=== PATIENT | male | born 1940 | race Caucasian/White ===

== ENCOUNTER → 2017-06-18 | Outpatient (CLI) | payer MEDICARE ==
[2017-06-18 09:06] LABS: CH 33.9; CHCM 33.8; HCT 49.7 % (39.0-53.0); HDW 2.57; HGB 16.9 gm/dL (13.0-17.5); MCH 34.2 pg (25.0-35.0); MCV 100.5 fL (80.0-100.0); Mean Platelet Volume 6.8; RBC 4.94 m/uL (4.30-5.90); RDW 12.4 % (11.5-15.5); WBC 4.1 k/uL (3.8-10.6)
[2017-06-18 09:22] LABS: ALT 35 U/L (21-72); AST 28 U/L (17-59); Anion Gap 11 mmol/L; Blood Urea Nitrogen 35 mg/dL (9-20); Calcium 9.7 mg/dL (8.4-10.2); Carbon Dioxide 25 mmol/L (22-30); Chloride 106 mmol/L (98-107); Cholesterol 110 mg/dL (<200); Glucose 108 mg/dL (74-99); HDL Cholesterol 52 mg/dL (40-60); Non-African American GFR(MDRD) 54 (>60 ml/min/1.73 sqM); Phosphorous 3.7 mg/dL (2.5-4.5); Sodium 142 mmol/L (137-145)
[2017-06-18 09:42] LABS: Appearance,Urine Clear (Clear); Bilirubin,Urine Negative (Negative); Glucose,Urine (UA) 4+ (Negative); Ketones,Urine Negative (Negative); Leukocyte Esterase,Urine Negative (Negative); Nitrite,Urine Negative (Negative); Protein,Urine Negative (Negative); Specific Gravity,Urine 1.019 (1.001-1.035); UA Billing (MACRO vs. MICRO) CHEM; Urobilinogen,Urine <2.0 mg/dL (<2.0)
[2017-06-18 12:15] LABS: Hemoglobin A1C 6.7 % (4.2-6.1)
== END | disposition home or self-care (01) ==
LOC: LABWHC1 08:37
PROVIDERS: ATTEND Internal Medicine
DX: E11.22 Type 2 diabetes mellitus with diabetic chronic kidney disease (principal); E78.2 Mixed hyperlipidemia; I10 Essential (primary) hypertension
CPT/HCPCS: 36415; 80061; 80069; 81003; 83036; 84450; 84460; 85027

== ENCOUNTER → 2018-07-27 | Outpatient (CLI) | payer MEDICARE ==
[2018-07-27 11:27] LABS: Albumin 4.5 g/dL (3.5-5.0); Calcium 9.9 mg/dL (8.4-10.2); Magnesium 1.8 mg/dL (1.6-2.3); Phosphorus 3.1 mg/dL (2.5-4.5); Total Bilirubin 0.8 mg/dL (0.2-1.3); Total Protein 7.1 g/dL (6.3-8.2)
[2018-07-27 11:48] LABS: PSA Annual Screen 0.44 ng/mL (0.00-4.00)
== END | disposition home or self-care (01) ==
LOC: LABWHC1 09:24
PROVIDERS: ATTEND Family Medicine
DX: E78.5 Hyperlipidemia, unspecified (principal); N18.2 Chronic kidney disease, stage 2 (mild); E11.22 Type 2 diabetes mellitus with diabetic chronic kidney disease; Z12.5 Encounter for screening for malignant neoplasm of prostate; Z80.42 Family history of malignant neoplasm of prostate
CPT/HCPCS: 80061; 80053; 83735; 84100; 82043; 82570; 83036; 36415; G0103

== ENCOUNTER → 2019-05-24 | Outpatient (CLI) | payer MEDICARE ==
[2019-05-24 16:28] LABS: African American GFR (CKD) 55.8 (60.0-200.0); Anion Gap 7.2 mmol/L (4.00-12.00); BUN/Creat Ratio 20.71 Ratio (12.00-20.00); Calcium 9.2 mg/dL (8.7-10.3); Carbon Dioxide 22.8 mmol/L (21.6-31.8); LDL Cholesterol,Calculated 30.8 mg/dL (0.0-131.0); Potassium 5.6 mmol/L (3.5-5.5); VLDL Calculation 20.2 mg/dL (5.00-40.00)
[2019-05-24 17:53] LABS: Hemoglobin A1C 7.7 % (4.0-6.0)
== END | disposition home or self-care (01) ==
LOC: LABWHC1 08:53
PROVIDERS: ATTEND Nurse Practitioner Adult Health
DX: I10 Essential (primary) hypertension (principal); E78.5 Hyperlipidemia, unspecified; E11.69 Type 2 diabetes mellitus with other specified complication; E03.9 Hypothyroidism, unspecified
CPT/HCPCS: 36415; 80048; 80061; 83036; 84443

== ENCOUNTER → 2019-06-18 | Outpatient (CLI) | payer MEDICARE ==
--- NOTE | 2019-06-18 15:28 | XR ---
EXAMINATION TYPE: XR lumbar spine 2 or 3V DATE OF EXAM: 06/18/2019 COMPARISON: None HISTORY: Back pain and [age] TECHNIQUE: 3 view lumbar spine FINDINGS: There are 5 lumbar-type vertebral bodies. The pedicles are intact. There is loss of disc he ight at L2-3, L3-4, L4-5, L5-S1. Vacuum disc phenomenon is present L2-3 L3-4 and L5-S1. Posterior end plate spurring is present throughout the lumbar spine. Spondylosis is present. IMPRESSION: 1. Advanced degenerative disc changes. 2. Posterior endplate spurring. Consider MRI for additional evaluation. 3. No acute posttraumatic changes identified.
--- NOTE | 2019-06-18 15:30 | XR ---
EXAMINATION TYPE: XR thoracic spine complete DATE OF EXAM: 06/18/2019 COMPARISON: None HISTORY: M [age], trauma, fall TECHNIQUE: 3 views thoracic spine FINDINGS: 12 thoracic type vertebral bodies. There is exaggeration of the kyphosis in the upper thora cic spine. Spondylosis is present. Degenerative disc changes within the mid thoracic spine. Vertebral body heights appear preserved. Scoliosis is present. IMPRESSION: 1. Degenerative changes discussed above. 2. No acute posttraumatic change is evident.
== END | disposition home or self-care (01) ==
LOC: RADXRMAIN 14:55
PROVIDERS: ATTEND Internal Medicine
DX: M51.36 Other intervertebral disc degeneration, lumbar region (principal); M47.814 Spondylosis without myelopathy or radiculopathy, thoracic region
CPT/HCPCS: 72072; 72100

== ENCOUNTER 2019-07-02 13:06 | Inpatient (IN) | payer MEDICARE ==
[2019-07-02 14:03] LABS: Basophils % (A) 1 %; Eosinophils # (A) 0.2 k/uL (0-0.7); Eosinophils % (A) 4 %; HCT 47.6 % (39.0-53.0); HGB 15.6 gm/dL (13.0-17.5); Lymphocytes % (A) 16 %; MCH 33.2 pg (25.0-35.0); MCHC 32.8 g/dL (31.0-37.0); Macrocytosis Slight; Mean Platelet Volume 7.2; Monocytes # (A) 0.5 k/uL (0-1.0); Monocytes % (A) 8 %; Neutrophils # (A) 4.1 k/uL (1.3-7.7); Neutrophils % (A) 69 %; Platelet Count 185 k/uL (150-450); RBC 4.71 m/uL (4.30-5.90); RDW 13.9 % (11.5-15.5); WBC 5.9 k/uL (3.8-10.6)
[2019-07-02 14:15] LABS: Albumin 4.1 g/dL (3.5-5.0); Potassium 5.3 mmol/L (3.5-5.1); Total Bilirubin 0.6 mg/dL (0.2-1.3); Total Protein 6.8 g/dL (6.3-8.2)
[2019-07-02 14:16] LABS: Partial Thromboplastin Time 26.3 sec (22.0-30.0); Prothrombin Time 10.4 sec (9.0-12.0)
[2019-07-02] MEDS ORDERED: ASPIRIN 81 MG PO STA (14:57)
[2019-07-02] MEDS ORDERED: METOPROLOL TARTRATE 5 MG/5 ML VIAL IVP STA (15:02)
--- NOTE | 2019-07-02 15:09 | ED ---
General Adult HPI - General Chief complaint: Dizziness Stated complaint: SOB, dizziness Time Seen by Provider: 07/02/19 14:45 Source: patient Mode of arrival: ambulatory Limitations: no limitations - History of Present Illness Initial comments: Patient presents to the ED complaining of having dyspnea and dizziness intermittently over the past 3 weeks. Patient reports having dyspnea with just minimal activity. Patient denies being dyspneic currently. Patient reports that his dizziness is exacerbated with changes in position. Patient denies feeling dizzy currently. Patient states that his heart rate has been elevated recently, and he states that his primary care provider recently increased his metoprolol dose. Patient denies having any pain, fevers or chills, headache, focal neuro deficit, chest pain, neck/arm/jaw/back pain, cough or cold symptoms, palpitations, syncope, nausea/vomiting/diaphoresis, abdominal pain, bloody stools, melanotic stools, diarrhea, urinary symptoms, decreased urine output, leg/calf swelling or tenderness, or any other symptoms or complaints. Treatments Prior to Arrival: none - Related Data Allergies Allergy/AdvReac Type Severity Reaction Status Date / Time No Known Allergies Allergy Verified 07/02/19 13:17 Review of Systems ROS Statement: Those systems with pertinent positive or pertinent negative responses have been documented in the HPI. ROS Other: All systems not noted in ROS Statement are negative. Past Medical History Past Medical History: Diabetes Mellitus, Hyperlipidemia, Hypertension, Myocardial Infarction (DC), Osteoarthritis (OA) History of Any Multi-Drug Resistant Organisms: None Reported Past Surgical History: Coronary Bypass/CABG, Heart Catheterization With Stent Past Psychological History: Depression Smoking Status: Former smoker Past Alcohol Use History: None Reported Past Drug Use History: None Reported General Exam Limitations: no limitations General appearance: alert, in no apparent distress Head exam: Present: atraumatic, normocephalic Eye exam: Present: normal appearance, PERRL, EOMI ENT exam: Present: mucous membranes dry Respiratory exam: Present: normal lung sounds bilaterally. Absent: respiratory distress, wheezes, rales, rhonchi Cardiovascular Exam: Present: normal rhythm, tachycardia, normal heart sounds, other (Normal radial pulses bilaterally) GI/Abdominal exam: Present: soft. Absent: distended, tenderness Extremities exam: Present: normal inspection. Absent: tenderness, pedal edema, calf tenderness Neurological exam: Present: alert, oriented X3, CN II-XII intact, other (normal rojxzk-uw-hden exam bilaterally). Absent: motor sensory deficit Psychiatric exam: Present: normal affect, normal mood Skin exam: Present: warm, dry, intact Course Vital Signs 07/02/19 07/02/19 07/02/19 13:09 14:30 15:00 Temperature 98.0 F Pulse Rate 121 H 124 H 123 H Respiratory 18 22 20 Rate Blood Pressure 121/87 115/94 112/90 O2 Sat by Pulse 95 98 98 Oximetry 07/02/19 07/02/19 15:30 16:00 Temperature Pulse Rate 120 H 104 H Respiratory 18 18 Rate Blood Pressure 115/86 117/90 O2 Sat by Pulse 99 97 Oximetry - Reevaluation(s) Reevaluation #1: 07/02/19 16:05 Patient continues to be resting and breathing comfortably. Patient continues to deny feeling dyspneic or dizzy while in the ED. Patient's heart rate is now in the low 100s, and he remains in sinus tachycardia on the patient monitor. Patient is aware of his test results thus far, and he agrees with hospital admission at this time for further evaluation of his symptoms. Reevaluation #2: 07/02/19 16:19 Patient's case, H&P, elevated troponin and EKG findings were discussed with j2ee java developer Dr. Rome who agrees to see the patient in consultation. Reevaluation #3: 07/02/19 16:39 Case, H&P, test results, my discussion with j2ee java developer and ED manage ment thus far were discussed with Dr. Tatum who accepts floor admission. Pt is currently symptom-free, and Dr. Tatum does not recommend heparin anticoagulation therapy at this time. He has no further recommendations at this time. EKG Findings - EKG Comments: EKG Findings:: Sinus tachycardia, ventricular rate is 121 bpm, CA and QRS intervals are normal, moderate voltage criteria for LVH, nonspecific ST and T- wave abnormality, no old EKG is available for comparison Medical Decision Making - Medical Decision Making Patient has been a symptom-free while in the ED. Patient has not been hypoxic while in the ED. Patient reports having intermittent dizziness and dyspnea for the past 3 weeks, and he denies having any chest pain or any pain at all. Patient's CT angiogram chest is negative for pulmonary embolism. Pt is mildly hyperglycemic, but his is not ketotic and he has a normal anion gap. Given the patient's minimally elevated troponin level and symptoms, will admit the patient to the hospital for further evaluation, repeat troponins and cardiac monitoring. Cardiology has been consulted. - Lab Data Result diagrams: 07/02/19 12:49 07/02/19 12:49 Lab Results 07/02/19 07/02/19 07/02/19 Range/Units 12:49 12:49 12:49 WBC 5.9 (3.8-10.6) k/uL RBC 4.71 (4.30-5.90) m/uL Hgb 15.6 (13.0-17.5) gm/dL Hct 47.6 (39.0-53.0) % MCV 101.0 H (80.0-100.0) fL MCH 33.2 (25.0-35.0) pg MCHC 32.8 (31.0-37.0) g/dL RDW 13.9 (11.5-15.5) % Plt Count 185 (150-450) k/uL Neutrophils % 69 % Lymphocytes % 16 % Monocytes % 8 % Eosinophils % 4 % Basophils % 1 % Neutrophils # 4.1 (1.3-7.7) k/uL Lymphocytes # 1.0 (1.0-4.8) k/uL Monocytes # 0.5 (0-1.0) k/uL Eosinophils # 0.2 (0-0.7) k/uL Basophils # 0.0 (0-0.2) k/uL Macrocytosis Slight PT 10.4 (9.0-12.0) sec INR 1.0 (<1.2) APTT 26.3 (22.0-30.0) sec D-Dimer (<0.60) mg/L FEU Sodium 139 (137-145) mmol/L Potassium 5.3 H (3.5-5.1) mmol/L Chloride 108 H (98-107) mmol/L Carbon Dioxide 19 L (22-30) mmol/L Anion Gap 12 mmol/L BUN 32 H (9-20) mg/dL Creatinine 1.59 H (0.66-1.25) mg/dL Est GFR (CKD-EPI)AfAm 48 (>60 ml/min/1.73 sqM) Est GFR (CKD-EPI)NonAf 41 (>60 ml/min/1.73 sqM) Glucose 295 H (74-99) mg/dL Calcium 10.0 (8.4-10.2) mg/dL Magnesium (1.6-2.3) mg/dL Total Bilirubin 0.6 (0.2-1.3) mg/dL AST 142 H (17-59) U/L ALT 99 H (21-72) U/L Alkaline Phosphatase 83 (38-126) U/L Troponin I (0.000-0.034) ng/mL NT-Pro-B Natriuret Pep pg/mL Total Protein 6.8 (6.3-8.2) g/dL Albumin 4.1 (3.5-5.0) g/dL Acetone, Qual (Negative) 07/02/19 07/02/19 07/02/19 Range/Units 12:49 12:49 12:49 WBC (3.8-10.6) k/uL RBC (4.30-5.90) m/uL Hgb (13.0-17.5) gm/dL Hct (39.0-53.0) % MCV (80.0-100.0) fL MCH (25.0-35.0) pg MCHC (31.0-37.0) g/dL RDW (11.5-15.5) % Plt Count (150-450) k/uL Neutrophils % % Lymphocytes % % Monocytes % % Eosinophils % % Basophils % % Neutrophils # (1.3-7.7) k/uL Lymphocytes # (1.0-4.8) k/uL Monocytes # (0-1.0) k/uL Eosinophils # (0-0.7) k/uL Basophils # (0-0.2) k/uL Macrocytosis PT (9.0-12.0) sec INR (<1.2) APTT (22.0-30.0) sec D-Dimer 0.70 H (<0.60) mg/L FEU Sodium (137-145) mmol/L Potassium (3.5-5.1) mmol/L Chloride (98-107) mmol/L Carbon Dioxide (22-30) mmol/L Anion Gap mmol/L BUN (9-20) mg/dL Creatinine (0.66-1.25) mg/dL Est GFR (CKD-EPI)AfAm (>60 ml/min/1.73 sqM) Est GFR (CKD-EPI)NonAf (>60 ml/min/1.73 sqM) Glucose (74-99) mg/dL Calcium (8.4-10.2) mg/dL Magnesium 1.6 (1.6-2.3) mg/dL Total Bilirubin (0.2-1.3) mg/dL AST (17-59) U/L ALT (21-72) U/L Alkaline Phosphatase (38-126) U/L Troponin I 0.115 H* (0.000-0.034) ng/mL NT-Pro-B Natriuret Pep pg/mL Total Protein (6.3-8.2) g/dL Albumin (3.5-5.0) g/dL Acetone, Qual (Negative) 07/02/19 07/02/19 Range/Units 12:49 15:10 WBC (3.8-10.6) k/uL RBC (4.30-5.90) m/uL Hgb (13.0-17.5) gm/dL Hct (39.0-53.0) % MCV (80.0-100.0) fL MCH (25.0-35.0) pg MCHC (31.0-37.0) g/dL RDW (11.5-15.5) % Plt Count (150-450) k/uL Neutrophils % % Lymphocytes % % Monocytes % % Eosinophils % % Basophils % % Neutrophils # (1.3-7.7) k/uL Lymphocytes # (1.0-4.8) k/uL Monocytes # (0-1.0) k/uL Eosinophils # (0-0.7) k/uL Basophils # (0-0.2) k/uL Macrocytosis PT (9.0-12.0) sec INR (<1.2) APTT (22.0-30.0) sec D-Dimer (<0.60) mg/L FEU Sodium (137-145) mmol/L Potassium (3.5-5.1) mmol/L Chloride (98-107) mmol/L Carbon Dioxide (22-30) mmol/L Anion Gap mmol/L BUN (9-20) mg/dL Creatinine (0.66-1.25) mg/dL Est GFR (CKD-EPI)AfAm (>60 ml/min/1.73 sqM) Est GFR (CKD-EPI)NonAf (>60 ml/min/1.73 sqM) Glucose (74-99) mg/dL Calcium (8.4-10.2) mg/dL Magnesium (1.6-2.3) mg/dL Total Bilirubin (0.2-1.3) mg/dL AST (17-59) U/L ALT (21-72) U/L Alkaline Phosphatase (38-126) U/L Troponin I (0.000-0.034) ng/mL NT-Pro-B Natriuret Pep 2110 pg/mL Total Protein (6.3-8.2) g/dL Albumin (3.5-5.0) g/dL Acetone, Qual Negative (Negative) - Radiology Data Radiology results: report reviewed (CT angio chest shows no evidence for acute pulmonary embolism or suspicious acute pulmonary process. A thoracic aortic aneurysm is noted.), image reviewed (Chest x-ray shows cardiomegaly, post operative changes and no focal air space disease) Disposition Clinical Impression: Elevated troponin, Dyspnea, Dizziness, Sinus tachycardia, Hyperglycemia Disposition: ADMITTED IP TO THIS [facility] Condition: Stable Is patient prescribed a controlled substance at d/c from ED?: No Time of Disposition: 16:39 Decision to Admit Reason: Admit from EC Decision Date: 07/02/19 Decision Time: 16:05
--- NOTE | 2019-07-02 15:46 | XR ---
EXAMINATION TYPE: XR chest 1V portable DATE OF EXAM: 07/02/2019 COMPARISON: NONE HISTORY: Dyspnea. TECHNIQUE: Single AP portable frontal upright view of the chest is obtained. FINDINGS: Post-CABG changes with mediastinal clips and sternal wires is present. There is chronic par enchymal changes bilaterally without suspicious focal air space opacity, pleural effusion, or pneumot horax seen. The cardiac silhouette size is enlarged. The osseous structures are intact. IMPRESSION: Cardiomegaly and chronic parenchymal changes without acute pulmonary process.
--- NOTE | 2019-07-02 16:19 | CT ---
EXAMINATION TYPE: CT chest angio for PE DATE OF EXAM: 07/02/2019 COMPARISON: NONE HISTORY: dyspnea, tachycardia, dizziness CT DLP: 747.9 mGycm. Automated Exposure Control for Dose Reduction was Utilized. CONTRAST: CTA scan of the thorax is performed with IV Contrast, patient injected with 80 mL of Isovue 370, pulm onary embolism protocol. MIP Images are created on CT scanner and reviewed. FINDINGS: LUNGS: Mild to moderate peripheral parenchymal reticulation and/or fibrosis is present bilaterally. N o pleural effusion or pneumothorax is seen. No suspicious focal consolidation. MEDIASTINUM: There is satisfactory enhancement of the pulmonary artery and its branches, there is no CT evidence for pulmonary embolism. There are no greater than 1 cm hilar or mediastinal lymph nodes . No significant pericardial effusion is seen. Cardiomegaly. Post-CABG changes with mediastinal cli ps and sternal wires. Enlarged main pulmonary artery 3.5 cm axial image 60, CT findings consistent wi th underlying pulmonary hypertension. Adjacent ascending aorta measures 4.7 cm in diameter. Tortuous course at origin of right brachiocephalic artery is felt present. Mass effect on trachea noted. OTHER: Underlying scoliotic curvature. Moderate to severe multilevel spurring. Reflux of contrast int o hepatic veins and IVC. Some cortical thinning in both kidneys with simple appearing thin-walled cys ts. Findings consistent with product of chronic medical renal disease. Possible vascular calcificatio n or less likely focal calculus left kidney axial image 149. IMPRESSION: No CT evidence for acute pulmonary embolism. [id number]-mi-[id number] parenchymal fibrotic change s bilaterally and cardiomegaly without suspicious acute pulmonary process. Thoracic aortic aneurysm.
[2019-07-02] MEDS ORDERED: INSULIN REGULAR 100 UNIT/ML VIAL IV ONE (17:44)
[2019-07-02] MEDS ORDERED: DEXTROSE 50% SYRINGE 50 ML IVP STA ×2 (17:45→17:51)
[2019-07-02] MEDS ORDERED: DEXTROSE 10 % IN WATER 250 ML IV ONE (17:47)
--- NOTE | 2019-07-02 17:49 | P.HPIM ---
History of Present Illness H&P Date: 07/02/19 Chief Complaint: Dizziness 79-year-old male with PMH of diabetes mellitus, hypertension, hyperlipidemia, CAD status post CABG, former smoker presents to the ED for dizziness. Patient reports lightheadedness that has been ongoing for the past 3 weeks to 1 month. Dizziness is worse when going from a sitting to standing position. Patient also reports progressively worsening shortness of breath that has been getting worse over the same time period as well. Patient states he used to be able to walk 2 blocks before feeling short of breath, but now can barely walk one half of a block. He reports no PND or lower extremity edema. Patient reports a previous episode where he had a syncopal episode when attempting to have a bowel movement. Patient denies any headaches, nausea or vomiting, fever or chills, cough, chest pain, palpitations, changes in urination or bowel habits. No changes in appetite or weight. Patient denies any numbness/weakness/tingling of the extremities. In the ED, vital signs were stable except for pulse as high as 124. CBC showed microcytosis of 101. D-dimer was elevated at 0.7, CTA chest ruled out PE. CMP showed a potassium of 5.3, bicarbonate of 19, BUN 32, creatinine of 1.59, glucose of 295, AST 142, ALT 99. Troponin was 0.115, EKG showing sinus tachycardia. BNP was 2110, chest x-ray showing cardiomegaly without acute process. CTA chest did show a thoracic aneurysm measuring 4.7 cm. Patient is admitted for dizziness, elevated troponins, cardiology consultation. Review of Systems Pertinent positives and negatives as discussed in HPI, a complete review of systems was performed and all other systems are negative. Past Medical History Past Medical History: Diabetes Mellitus, Hyperlipidemia, Hypertension, Myocardial Infarction (SC), Osteoarthritis (OA) History of Any Multi-Drug Resistant Organisms: None Reported Past Surgical History: Coronary Bypass/CABG, Heart Catheterization With Stent Past Psychological History: Depression Smoking Status: Former smoker Past Alcohol Use History: None Reported Past Drug Use History: None Reported Medications and Allergies Allergies Allergy/AdvReac Type Severity Reaction Status Date / Time No Known Allergies Allergy Verified 07/02/19 13:17 Physical Exam Vitals: Vital Signs Temp Pulse Resp BP Pulse Ox 07/02/19 17:30 104 H 18 124/72 95 07/02/19 17:00 108 H 18 126/93 96 07/02/19 16:00 104 H 18 117/90 97 07/02/19 15:30 120 H 18 115/86 99 07/02/19 15:00 123 H 20 112/90 98 07/02/19 14:30 124 H 22 115/94 98 07/02/19 13:09 98.0 F 121 H 18 121/87 95 Intake and Output 07/02/19 07/02/19 07/02/19 06:59 14:59 22:59 Other: Weight 116.573 kg General: [non toxic], [no distress], [appears at stated age] Derm: [warm], [dry] Head: [atraumatic], [normocephalic], [symmetric] Eyes: [EOMI], [no lid lag], [anicteric sclera] Mouth: [no lip lesion], [mucus membranes moist] Cardiovascular: [S1S2 reg], [tachycardia], [positive posterior tibial pulse bilateral], Lungs: [CTA bilateral], [no rhonchi, no rales] , [no accessory muscle use] Abdominal: [soft], [ nontender to palpation], [no guarding], [no appreciable organomegaly] Ext: [no gross muscle atrophy], [no edema], [no contractures] Neuro: [ CN II-XI grossly intact], [no focal neuro deficits] Psych: [Alert], [oriented], [appropriate affect] Results CBC & Chem 7: 07/02/19 12:49 07/02/19 12:49 Labs: Abnormal Lab Results - Last 24 Hours (Table) 07/02/19 07/02/19 07/02/19 Range/Units 12:49 12:49 12:49 MCV 101.0 H (80.0-100.0) fL D-Dimer (<0.60) mg/L FEU Potassium 5.3 H (3.5-5.1) mmol/L Chloride 108 H (98-107) mmol/L Carbon Dioxide 19 L (22-30) mmol/L BUN 32 H (9-20) mg/dL Creatinine 1.59 H (0.66-1.25) mg/dL Glucose 295 H (74-99) mg/dL AST 142 H (17-59) U/L ALT 99 H (21-72) U/L Troponin I 0.115 H* (0.000-0.034) ng/mL 07/02/19 Range/Units 12:49 MCV (80.0-100.0) fL D-Dimer 0.70 H (<0.60) mg/L FEU Potassium (3.5-5.1) mmol/L Chloride (98-107) mmol/L Carbon Dioxide (22-30) mmol/L BUN (9-20) mg/dL Creatinine (0.66-1.25) mg/dL Glucose (74-99) mg/dL AST (17-59) U/L ALT (21-72) U/L Troponin I (0.000-0.034) ng/mL Assessment and Plan Assessment: Assessment and Plan Presyncope, rule out orthostatic versus murmur/arrhythmia Elevated troponins, likely troponin leak from CKD, rule out ACS Hyperkalemia Metabolic acidosis Acute kidney injury on probable chronic kidney disease Elevated transaminitis Diabetes mellitus with hyperglycemia Dyslipidemia Hypothyroidism Appears orthostatic from history. CTA rules out PE. Troponin 0.115 with EKG showing sinus tachycardia. Plans: Obtain orthostats. Telemetry monitoring. Rule out acute coronary syndrome. Troponin 0.115 with EKG showing sinus tachycardia. Likely troponin leak from CKD. Plans: Trend troponin/EKG to rule out ACS. Resume aspirin, Lipitor and beta cameron. Follow cardiology consultation. Potassium 5.3. From CKD. Plans: 10 units of insulin with D50. Repeat BMP in the morning. HCO3 19. Likely from CKD. Plans: Daily BMP. Creatinine 1.59, baseline one month prior was 1.4. Likely from dehydration. Plans: Start normal saline at 80 mL per hour. Avoid nephrotoxins. Daily BMP. AST 142, ALT 99. Unknown etiology. Plans: Repeat LFT in the morning. Follow lipid panel. Follow hepatitis panel. [id number] glucose 295. Plans: Insulin sliding so. Regular Accu-Cheks. Hypoglycemic precautions. Plans: Start Lipitor. Plans: Start Synthroid. DVT prophylaxis: [Heparin] Discussed with: [Patient] Anticipated discharge: [1-2 days] Anticipated discharge place: [Home] A total of [45] minutes was spent on the care of this complex patient more than 50% of the time was spent in counseling and care coordination. Patient names his daughter Verna decision-maker indicates that he can't make d ecisions for himself. Patient reiterates wanting to remain full code at this time. Patient is admitted for anticipated greater than 48 hours admission for elevated troponins, presyncopal symptoms and cardiology evaluation.
[2019-07-02] MEDS ORDERED: NALOXONE 0.4 MG/ML 1 ML VIAL IV PRN (17:54)
[2019-07-02] MEDS ORDERED: HYDROcodone/APAP 5-325MG 1 EACH TAB PO PRN (17:54)
[2019-07-02] MEDS ORDERED: ACETAMINOPHEN TAB 325 MG TAB PO PRN (17:54)
[2019-07-02 18:19] LABS: Glucose,Whole Blood 105 mg/dL (75-99)
[2019-07-02] MEDS: SODIUM CHLORIDE 0.9% 1,000 ML IV SCH (18:43)
[2019-07-02 20:57] LABS: Glucose,Whole Blood 132 mg/dL (75-99)
[2019-07-02] MEDS: INSULIN ASPART (NovoLOG) 100 UNIT/ML VIAL SQ SCH (21:13)
[2019-07-02] MEDS: ATORVASTATIN 40 MG TAB PO SCH (21:13)
[2019-07-03] MEDS: SODIUM CHLORIDE 0.9% 1,000 ML IV SCH ×2 (04:08→14:53)
[2019-07-03 06:00] LABS: Glucose,Whole Blood 87 mg/dL (75-99)
[2019-07-03] MEDS: LEVOTHYROXINE 100 MCG TAB PO SCH (06:05)
[2019-07-03] MEDS: INSULIN ASPART (NovoLOG) 100 UNIT/ML VIAL SQ SCH ×4 (06:06→20:51)
[2019-07-03 07:35] LABS: Cholesterol 90 mg/dL (<200); HDL Cholesterol 40 mg/dL (40-60); LDL Cholesterol,Calculated 24 mg/dL (0-99); Triglycerides 131 mg/dL (<150)
[2019-07-03 08:15] LABS: Calcium 9.2 mg/dL (8.4-10.2); Potassium 4.8 mmol/L (3.5-5.1)
[2019-07-03] MEDS: FENOFIBRATE 160 MG TAB PO SCH (08:25)
[2019-07-03] MEDS: ASPIRIN 81 MG PO SCH (08:25)
[2019-07-03] MEDS: LISINOPRIL 5 MG TAB PO SCH (08:25)
[2019-07-03] MEDS ORDERED: METOPROLOL SUCCINATE (ER) 25 MG TAB.ER.24H PO SCH (09:00)
[2019-07-03] MEDS ORDERED: CLOPIDOGREL 75 MG TAB PO SCH (09:00)
[2019-07-03] MEDS ORDERED: ASPIRIN 325 MG TAB PO SCH (09:00)
--- NOTE | 2019-07-03 11:35 | P.PN ---
Subjective Progress Note Date: 07/03/19 Principal diagnosis: Dizziness Patient was seen and examined. No acute events overnight. Patient reports continued dizziness, though improved. Described as lightheadedness, worse with going from sitting to standing position. He denies any chest pain, shortness of breath or palpitations. No nausea or vomiting. No fever or chills. His symptoms of only been going on over the past month. Objective - Vital Signs Vital signs: Vital Signs Temp 98.6 F 07/03/19 08:00 Pulse 129 H 07/03/19 08:00 Resp 18 07/03/19 08:00 BP 109/77 07/03/19 08:00 Pulse Ox 94 L 07/03/19 08:00 Intake & Output 07/02/19 07/03/19 07/03/19 18:59 06:59 18:59 Intake Total 240 660 Balance 240 660 Weight 116.573 kg 116.7 kg Intake: IV 300 Sodium Chloride 0.9% 1, 300 000 ml @ 100 mls/hr IV . Q10H [facility] Rx#:[id number] Oral 240 360 Other: Voiding Method Urinal # Voids 1 1 - Exam General: [non toxic], [no distress], [appears at stated age] Derm: [warm], [dry] Head: [atraumatic], [normocephalic], [symmetric] Eyes: [EOMI], [no lid lag], [anicteric sclera] Mouth: [no lip lesion], [mucus membranes moist] Cardiovascular: [S1S2 reg], [tachycardia], [positive DP pulse bilateral], Lungs: [CTA bilateral], [no rhonchi, no rales] , [no accessory muscle use] Abdominal: [soft], [ nontender to palpation], [no guarding], [no appreciable organomegaly] Ext: [no gross muscle atrophy], [no edema], [no contractures] Neuro: [no focal neuro deficits] Psych: [Alert], [oriented], [appropriate affect] - Labs CBC & Chem 7: 07/02/19 12:49 07/03/19 06:05 Labs: Abnormal Lab Results - Last 24 Hours (Table) 07/02/19 07/02/19 07/02/19 Range/Units 12:49 12:49 12:49 MCV 101.0 H (80.0-100.0) fL D-Dimer (<0.60) mg/L FEU Potassium 5.3 H (3.5-5.1) mmol/L Chloride 108 H (98-107) mmol/L Carbon Dioxide 19 L (22-30) mmol/L BUN 32 H (9-20) mg/dL Creatinine 1.59 H (0.66-1.25) mg/dL Glucose 295 H (74-99) mg/dL POC Glucose (mg/dL) (75-99) mg/dL AST 142 H (17-59) U/L ALT 99 H (21-72) U/L Troponin I 0.115 H* (0.000-0.034) ng/mL 07/02/19 07/02/19 07/02/19 Range/Units 12:49 18:17 18:28 MCV (80.0-100.0) fL D-Dimer 0.70 H (<0.60) mg/L FEU Potassium (3.5-5.1) mmol/L Chloride (98-107) mmol/L Carbon Dioxide (22-30) mmol/L BUN (9-20) mg/dL Creatinine (0.66-1.25) mg/dL Glucose (74-99) mg/dL POC Glucose (mg/dL) 105 H (75-99) mg/dL AST (17-59) U/L ALT (21-72) U/L Troponin I 0.126 H* (0.000-0.034) ng/mL 07/02/19 07/03/19 07/03/19 Range/Units 20:56 00:41 06:05 MCV (80.0-100.0) fL D-Dimer (<0.60) mg/L FEU Potassium (3.5-5.1) mmol/L Chloride (98-107) mmol/L Carbon Dioxide (22-30) mmol/L BUN 26 H (9-20) mg/dL Creatinine 1.46 H (0.66-1.25) mg/dL Glucose (74-99) mg/dL POC Glucose (mg/dL) 132 H (75-99) mg/dL AST (17-59) U/L ALT (21-72) U/L Troponin I 0.123 H* (0.000-0.034) ng/mL Assessment and Plan Assessment: Assessment and Plan Presyncope, rule out orthostatic versus murmur/arrhythmia Elevated troponins, likely troponin leak from CKD, rule out ACS Tachycardia Acute kidney injury on probable chronic kidney disease Elevated transaminitis Diabetes mellitus with hyperglycemia Dyslipidemia Hypothyroidism Resolved: Hyperkalemia, metabolic acidosis Appears orthostatic from history. CTA rules out PE. Troponin 0.115, 0.126, 0.123 with EKG showing sinus tachycardia. Plans: Obtain orthostats. Telemetry monitoring. ACS ruled out. Troponin 0.115, 0.126, 0.123 with EKG showing sinus tachycardia. Likely troponin leak from CKD. Plans: ACS ruled out. Resume aspirin with Plavix, Lipitor and beta cameron. Follow-up echocardiogram. Follow cardiology consultation. Sinus tachycardia on admission EKG. Has been persistently tachycardic since admission. CTA chest ruled out PE. On metoprolol 25 mg by mouth daily. Plans: Repeat EKG. Creatinine 1.59-1.46, baseline one month prior was 1.4. Likely from dehydration. Plans: Continue normal saline at 80 mL per hour. Avoid nephrotoxins. Daily BMP. AST 142, ALT 99. Unknown etiology. Lipid panel within normal limits. Plans: Follow hepatitis panel. [id number] glucose 87. Plans: Insulin sliding scale. Regular Accu-Cheks. Hypoglycemic precautions. Plans: Continue Lipitor. Plans: Continue Synthroid. [Patient admitted for lightheadedness. Orthostats (discussed with nursing) and echocardiogram pending. Discussed with Renée SWITCHING CLERK, will continue to monitor overnight. Likely DC in 1-2 days.]
[2019-07-03 11:51] LABS: Glucose,Whole Blood 195 mg/dL (75-99)
[2019-07-03] MEDS ORDERED: HEPARIN SODIUM,PORCINE 5,000 UNIT/ML 1 ML VIAL IV ONE (13:00)
[2019-07-03] MEDS ORDERED: HEPARIN SODIUM,PORCINE 5,000 UNIT/ML 1 ML VIAL IV PRN (13:00)
[2019-07-03] MEDS ORDERED: METOPROLOL SUCCINATE (ER) 25 MG TAB.ER.24H PO STA (13:01)
--- NOTE | 2019-07-03 13:06 | P.CRDCN ---
History of Present Illness History of present illness: This is a pleasant 79-year-old male past medical history significant for coronary artery disease status post bypass grafting 1997 and subsequent stent placement to the circumflex in 2013, hypertension, dyslipidemia and former nicotine dependence. He follows in the office with Dr. Llanos. We have been asked to see him in consultation secondary to shortness of breath and troponin abnormality. He presented to the hospital with symptoms of shortness of breath over the previous month. His shortness of breath is typically with exertion but does occur at times at rest. He also complains of feeling dizzy or lightheaded with position changes. For the previous couple of weeks when he checks his blood pressure at home he notices his heart rate on average range is between 120 and 130. EKG on admission reveals sinus tachycardia with first-degree AV block heart rate of 121 with nonspecific changes. Chest x-ray reveals cardiomegaly and chronic parenchymal changes with no acute process. 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 Laboratory data reviewed, WBC 5.9, hemoglobin 15.6, platelets 185, d-dimer 0.7, sodium 140, potassium on admission 5. 3 repeat today 4.8, creatinine 1.59 on admission repeat today 1.46, magnesium 1.6, proBNP is 2110, LDL 24 and TSH 2.83., troponin 0.115, 0.126 and 0.123. Current daily cardiac medications include Toprol 50 mg daily, lisinopril 5 mg daily, aspirin 81 mg daily, Plavix 75 mg daily and simvastatin 20 mg daily. Orthostatics requested are unremarkable. Telemetry tracings and repeat EKG's reviewed. Patient is having episodes of paroxysmal atrial flutter and fibrillation. At the time of my exam: CONSTITUTIONAL: Denies fever. Denies chills. EYES: Denies blurred vision. Denies vision changes. Denies eye pain. EARS, NOSE, MOUTH & THROAT: Denies headache. Denies sore throat. Denies ear gigi n. CARDIOVASCULAR: Denies chest pain. Denies shortness of breath. Denies orthopnea. Denies PND. Denies palpitations. RESPIRATORY: Denies cough. GASTROINTESTINAL: Denies abdominal pain. Denies diarrhea. Denies constipation. Denies nausea. Denies vomiting. MUSCULOSKELETAL: Denies myalgias. INTEGUMENTARY: Denies pruitis. Denies rash. NEUROLOGIC: Denies numbness. Denies tingling. Denies weakness. PSYCHIATRIC: Denies anxiety. Denies depression. ENDOCRINE: Denies fatigue. Denies weight change. Denies polydipsia. Denies polyurina. GENITOURINARY: Denies burning, hematuria or urgency with micturation. HEMATOLOGIC: Denies history of anemia. Denies bleeding. Blood pressure 109/77 heart rate 129 afebrile maintaining oxygen saturation on room air GENERAL: This is a 79-year-old male in no apparent distress at the time of my examination. HEENT: Head is atraumatic, normocephalic. Pupils are equal, round. Sclerae anicteric. Conjunctivae are clear. Mucous membranes of the mouth are moist. Neck is supple. There is no jugular venous distention. No carotid bruit is heard. LUNGS: Bibasilar rales, no wheezes or rhonchi. No chest wall tenderness is noted on palpation or with deep breathing. HEART: Regular rate and rhythm without murmurs, rubs or gallops. S1 and S2 heard. ABDOMEN: Soft, nontender. Bowel sounds are heard. No organomegaly noted. EXTREMITIES: No evidence of peripheral edema and no calf tenderness noted. VASCULAR: Radial and dorsalis pedis pulses palpated, no evidence of clubbing. NEUROLOGIC: Patient is awake, alert and oriented x3. ASSESSMENT Exertional shortness of breath and dizziness with elevated proBNP and rales on exam. Mild exacerbation of diastolic heart failure. Symptoms also could be related to paroxysmal A. fib. Paroxysmal atrial fibrillation with variable rates History of coronary artery disease status post bypass grafting Hypertension Dyslipidemia Troponin elevation, no typical rise and fall pattern to suggest an acute coronary event. Possibly related to underlying chronic renal failure. Will check echo. PLAN Initiate on heparin infusion, will check the cost of Eliquis. Obtain 2-D echocardiogram and Doppler study to assess cardiac structure and function. Add oral dose of Lasix 40 mg twice a day. Resume Toprol 50 mg daily, lisinopril 5 mg daily, aspirin 81 mg daily and atorvastatin 40 mg daily. Further recommendations to follow based upon clinical course. Thank you kindly for this consultation. Nurse Practitioner note has been reviewed, I agree with a documented findings and plan of care. Patient was seen and examined. Past Medical History Past Medical History: Diabetes Mellitus, Hyperlipidemia, Hypertension, Myocardial Infarction (ID), Osteoarthritis (OA), Renal Disease Additional Past Medical History / Comment(s): "MILD KIDNEY SOMETHING" Last Myocardial Infarction Date:: 1997 History of Any Multi-Drug Resistant Organisms: None Reported Past Surgical History: Coronary Bypass/CABG, Heart Catheterization With Stent Additional Past Surgical History / Comment(s): CABG DONE AT [facility] BY DR CIRO YO MAY 1998. STNET oct 1993 Past Anesthesia/Blood Transfusion Reactions: No Reported Reaction Date of Last Stent Placement:: 1993 Past Psychological History: Depression Smoking Status: Former smoker Past Alcohol Use History: None Reported Additional Past Alcohol Use History / Comment(s): QUIT SMOKING 1997, Past Drug Use History: None Reported - Past Family History Mother Family Medical History: CVA/TIA, Myocardial Infarction (ID) Father Family Medical History: CVA/TIA Medications and Allergies Home Medications Medication Instructions Recorded Confirmed Type Aspirin EC [Ecotrin Low Dose] 81 mg PO HS 07/02/19 07/02/19 History Clopidogrel Bisulfate [Plavix] 75 mg PO DAILY 07/02/19 07/02/19 History Fenofibrate 160 mg PO HS 07/02/19 07/02/19 History Levothyroxine Sodium [Synthroid] 100 mcg PO DAILY 07/02/19 07/02/19 History Lisinopril [Zestril] 5 mg PO DAILY 07/02/19 07/02/19 History Meloxicam 15 mg PO DAILY 07/02/19 07/02/19 History Metoprolol Succinate (ER) [Toprol 50 mg PO DAILY 07/02/19 07/02/19 History Xl] Pioglitazone HCl 30 mg PO DAILY 07/02/19 07/02/19 History Simvastatin [Zocor] 20 mg PO HS 07/02/19 07/02/19 History Zolpidem [Ambien] 10 mg PO HS PRN 07/02/19 07/02/19 History glipiZIDE XL [Glucotrol Xl] 10 mg PO BID 07/02/19 07/02/19 History metFORMIN HCL [metFORMIN HCL ER 1,000 mg PO BID 07/02/19 07/02/19 History Osmotic] Allergies Allergy/AdvReac Type Severity Reaction Status Date / Time No Known Allergies Allergy Verified 07/02/19 19:38 Physical Exam Vitals: Vital Signs Temp Pulse Pulse Resp BP BP Pulse Ox 07/03/19 04:00 98.0 F 126 H 18 99/66 92 L 07/03/19 00:00 97.8 F 124 H 18 110/72 95 07/02/19 20:00 97.5 F L 127 H 18 123/82 94 L 07/02/19 18:28 97.5 F L 123 H 20 140/94 95 07/02/19 17:30 104 H 18 124/72 95 07/02/19 17:00 108 H 18 126/93 96 07/02/19 16:00 104 H 18 117/90 97 07/02/19 15:30 120 H 18 115/86 99 07/02/19 15:00 123 H 20 112/90 98 07/02/19 14:30 124 H 22 115/94 98 07/02/19 13:09 98.0 F 121 H 18 121/87 95 Intake and Output 07/02/19 07/03/19 07/03/19 22:59 06:59 14:59 Intake Total 240 Balance 240 Intake: Oral 240 Other: Voiding Method Urinal Urinal # Voids 1 1 Weight 116.7 kg Results 07/02/19 12:49 07/03/19 06:05 Cardiac Enzymes 07/02/19 07/02/19 07/02/19 Range/Units 12:49 12:49 18:28 AST 142 H (17-59) U/L Troponin I 0.115 H* 0.126 H* (0.000-0.034) ng/mL 07/03/19 Range/Units 00:41 AST (17-59) U/L Troponin I 0.123 H* (0.000-0.034) ng/mL Coagulation 07/02/19 Range/Units 12:49 PT 10.4 (9.0-12.0) sec APTT 26.3 (22.0-30.0) sec Lipids 07/03/19 Range/Units 06:05 Triglycerides 131 (<150) mg/dL Cholesterol 90 (<200) mg/dL HDL Cholesterol 40 (40-60) mg/dL CBC 07/02/19 Range/Units 12:49 WBC 5.9 (3.8-10.6) k/uL RBC 4.71 (4.30-5.90) m/uL Hgb 15.6 (13.0-17.5) gm/dL Hct 47.6 (39.0-53.0) % Plt Count 185 (150-450) k/uL Comprehensive Metabolic Panel 07/02/19 Range/Units 12:49 Sodium 139 (137-145) mmol/L Potassium 5.3 H (3.5-5.1) mmol/L Chloride 108 H (98-107) mmol/L Carbon Dioxide 19 L (22-30) mmol/L BUN 32 H (9-20) mg/dL Creatinine 1.59 H (0.66-1.25) mg/dL Glucose 295 H (74-99) mg/dL Calcium 10.0 (8.4-10.2) mg/dL AST 142 H (17-59) U/L ALT 99 H (21-72) U/L Alkaline Phosphatase 83 (38-126) U/L Total Protein 6.8 (6.3-8.2) g/dL Albumin 4.1 (3.5-5.0) g/dL Current Medications Generic Name Dose Route Start Last Admin Trade Name Freq PRN Reason Stop Dose Admin Acetaminophen 650 mg 07/02/19 17:54 Tylenol Tab PO Q6HR PRN Mild Pain or Fever > 100.5 Hydrocodone Bitart/Acetaminophen 1 each 07/02/19 17:54 [place] 5-325 PO Q4HR PRN Moderate Pain Aspirin 325 mg 07/03/19 09:00 Aspirin PO DAILY [facility] Atorvastatin Calcium 40 mg 07/02/19 21:00 07/02/19 21:13 Lipitor PO 40 mg HS SCOTT Administration Clopidogrel Bisulfate 75 mg 07/03/19 09:00 Plavix PO DAILY SCOTT Fenofibrate 160 mg 07/03/19 09:00 Lofibra PO DAILY SCOTT Sodium Chloride 1,000 mls @ 100 mls/hr 07/02/19 18:00 07/03/19 04:08 Saline 0.9% IV 100 mls/hr .Q10H SCOTT Administration Insulin Aspart 0 unit 07/02/19 21:00 07/03/19 06:06 Novolog SQ Not Given ACHS [facility] Protocol Levothyroxine Sodium 100 mcg 07/03/19 06:30 07/03/19 06:05 Synthroid PO 100 mcg DAILY@0630 SCOTT Administration Lisinopril 5 mg 07/03/19 09:00 Zestril PO DAILY SCOTT Metoprolol Succinate 25 mg 07/03/19 09:00 Toprol Xl PO DAILY SCOTT Naloxone HCl 0.2 mg 07/02/19 17:54 Narcan IV Q2M PRN Opioid Reversal Zolpidem Tartrate 10 mg 07/02/19 17:51 Ambien PO HS PRN Insomnia Intake and Output 07/02/19 07/03/19 07/03/19 22:59 06:59 14:59 Intake Total 240 Balance 240 Intake: Oral 240 Other: Voiding Method Urinal Urinal # Voids 1 1 Weight 116.7 kg 07/02/19 12:49 07/02/19 12:49
[2019-07-03 13:30] LABS: Partial Thromboplastin Time 28.4 sec (22.0-30.0); Prothrombin Time 10.9 sec (9.0-12.0)
[2019-07-03] MEDS: HEPARIN SOD,PORK IN 0.45% NACL 25,000 UNIT in 0.45% NACL 1 250ML.BAG IV SCH (13:49)
[2019-07-03] MEDS: FUROSEMIDE 40 MG TAB PO SCH (15:19)
--- NOTE | 2019-07-03 15:41 | ECHOF ---
Referral Reason:Dizziness MEASUREMENTS -------- HEIGHT: 185.4 cm WEIGHT: 116.6 kg BP: 123/82 RVIDd: 3.4 cm (< 3.3) IVSd: 1.0 cm (0.6 - 1.1) LVIDd: 5.4 cm (3.9 - 5.3) LVPWd: 1.1 cm (0.6 - 1.1) IVSs: 1.3 cm LVIDs: 4.9 cm LVPWs: 1.2 cm LA Diam: 4.9 cm (2.7 - 3.8) Ao Diam: 4.3 cm (2.0 - 3.7) AV Cusp: 1.9 cm (1.5 - 2.6) MV EXCURSION: 18.742 mm (> 18.000) MV EF SLOPE: 160 mm/s (70 - 150) RAP: 15.00 mmHg RVSP: 44.16 mmHg FINDINGS -------- Resting tachycardia (HR>100bpm). This was a technically adequate study. The left ventricle is mildly dilated. There is mild concentric left ventricular hypertrophy. Ther e is moderate global hypokinesis of LV . Overall left ventricular systolic function is severely red uced with, an EF between 20 - 30 % The right ventricle is normal in size and function. The left atrial size is normal. The right atrium is normal in size. Interatrial and interventricular septum intact. There is mild aortic valve sclerosis. Trace amount of aortic regurgitation. There is trace to mild mitral regurgitation. The tricuspid valve appears structurally normal. Mild tricuspid regurgitation present. There is m ild pulmonary hypertension. The right ventricular systolic pressure, as measured by Doppler, is 44. 16mmHg. The pulmonic valve is normal. The aortic root size is normal. The pericardium is normal. CONCLUSIONS -------- 1. Resting tachycardia (HR>100bpm). 2. This was a technically adequate study. 3. The left ventricle is mildly dilated. 4. There is mild concentric left ventricular hypertrophy. 5. There is moderate global hypokinesis of LV . 6. Overall left ventricular systolic function is severely reduced with, an EF between 20 - 30 % 7. The left atrial size is normal. 8. The right atrium is normal in size. 9. Interatrial and interventricular septum intact. 10. There is mild aortic valve sclerosis. 11. Trace amount of aortic regurgitation. 12. There is trace to mild mitral regurgitation. 13. The tricuspid valve appears structurally normal. 14. Mild tricuspid regurgitation present. 15. There is mild pulmonary hypertension. 16. The right ventricular systolic pressure, as measured by Doppler, is 44.16mmHg. 17. The pulmonic valve is normal. 18. The aortic root size is normal. 19. The pericardium is normal. CATTLE SORTER: Theo Gacria RDCS
[2019-07-03 17:04] LABS: Glucose,Whole Blood 237 mg/dL (75-99)
[2019-07-03 20:10] LABS: Glucose,Whole Blood 224 mg/dL (75-99)
[2019-07-03] MEDS: ATORVASTATIN 40 MG TAB PO SCH (20:52)
[2019-07-03] MEDS: ZOLPIDEM 10 MG TAB PO PRN (23:15)
[2019-07-04 05:37] LABS: Basophils # (A) 0.1 k/uL (0-0.2); Basophils % (A) 1 %; Eosinophils # (A) 0.3 k/uL (0-0.7); Eosinophils % (A) 6 %; HCT 45.6 % (39.0-53.0); HGB 14.8 gm/dL (13.0-17.5); Lymphocytes # (A) 1.3 k/uL (1.0-4.8); Lymphocytes % (A) 23 %; MCH 32.3 pg (25.0-35.0); MCHC 32.4 g/dL (31.0-37.0); MCV 99.6 fL (80.0-100.0); Mean Platelet Volume 6.9; Monocytes # (A) 0.5 k/uL (0-1.0); Monocytes % (A) 9 %; Neutrophils # (A) 3.4 k/uL (1.3-7.7); Neutrophils % (A) 59 %; Platelet Count 158 k/uL (150-450); RBC 4.58 m/uL (4.30-5.90); RDW 12.6 % (11.5-15.5); WBC 5.7 k/uL (3.8-10.6)
[2019-07-04 06:22] LABS: Calcium 9.5 mg/dL (8.4-10.2)
[2019-07-04 06:25] LABS: Glucose,Whole Blood 130 mg/dL (75-99)
[2019-07-04] MEDS: INSULIN ASPART (NovoLOG) 100 UNIT/ML VIAL SQ SCH ×4 (07:10→20:42)
[2019-07-04] MEDS: LEVOTHYROXINE 100 MCG TAB PO SCH (07:12)
[2019-07-04] MEDS: HEPARIN SOD,PORK IN 0.45% NACL 25,000 UNIT in 0.45% NACL 1 250ML.BAG IV SCH (08:09)
[2019-07-04] MEDS: SODIUM CHLORIDE 0.9% 1,000 ML IV SCH ×2 (08:09→08:13)
[2019-07-04] MEDS: LISINOPRIL 5 MG TAB PO SCH (08:13)
[2019-07-04] MEDS: ASPIRIN 81 MG PO SCH (08:13)
[2019-07-04] MEDS: FENOFIBRATE 160 MG TAB PO SCH (08:13)
[2019-07-04] MEDS: FUROSEMIDE 40 MG TAB PO SCH ×2 (08:13→15:40)
[2019-07-04] MEDS ORDERED: METOPROLOL SUCCINATE (ER) 50 MG TAB.ER.24H PO SCH (09:00)
--- NOTE | 2019-07-04 09:52 | P.PN ---
Subjective Progress Note Date: 07/04/19 Principal diagnosis: Atrial fibrillation/flutter, CHF Patient was seen and examined. No acute events overnight. Patient states that he was able to take a shower this morning without any lightheadedness. Patient continues to complain of shortness of breath and difficulty breathing, especially with exertion. He denies any chest pain or palpitations. No nausea or vomiting. No fever or chills. 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 States that his last echocardiogram was greater than 1 year ago. Objective - Vital Signs Vital signs: Vital Signs Temp 97.9 F 07/04/19 04:00 Pulse 125 H 07/04/19 04:00 Resp 16 07/04/19 04:00 BP 111/68 07/04/19 04:00 Pulse Ox 95 07/04/19 04:00 Intake & Output 07/03/19 07/04/19 07/04/19 18:59 06:59 18:59 Intake Total 1480 888.357 266.777 Balance 1480 888.357 266.777 Weight 117.7 kg Intake: IV 400 700 Sodium Chloride 0.9% 1, 400 700 000 ml @ 100 mls/hr IV . Q10H SCOTT Rx#:[id number] Intake, IV Titration 188.357 26.777 Amount Heparin Sod,Pork in 0.45% 188.357 26.777 NaCl 25,000 unit In 0.45 % NaCl 1 250ml.bag @ 8. 569 UNITS/KG/HR 10 mls/hr IV .Q24H SCOTT Rx#: [id number] Oral 1080 240 Other: Voiding Method Toilet - Exam General: [non toxic], [no distress], [appears at stated age] Derm: [warm], [dry] Head: [atraumatic], [normocephalic], [symmetric] Eyes: [EOMI], [no lid lag], [anicteric sclera] Mouth: [no lip lesion], [mucus membranes moist] Cardiovascular: [S1S2 reg], [no murmur], [positive DP pulse bilateral], Lungs: [CTA bilateral], [no rhonchi, no rales] , [no accessory muscle use] Abdominal: [soft], [ nontender to palpation], [no guarding], [no appreciable organomegaly] Ext: [no gross muscle atrophy], [no edema], [no contractures] Neuro: [no focal neuro deficits] Psych: [Alert], [oriented], [appropriate affect] - Labs CBC & Chem 7: 07/04/19 05:23 07/04/19 05:23 Labs: Abnormal Lab Results - Last 24 Hours (Table) 07/03/19 07/03/19 07/03/19 Range/Units 11:47 17:01 19:47 APTT 36.2 H (22.0-30.0) sec Chloride (98-107) mmol/L BUN (9-20) mg/dL Creatinine (0.66-1.25) mg/dL Glucose (74-99) mg/dL POC Glucose (mg/dL) 195 H 237 H (75-99) mg/dL 07/03/19 07/04/19 07/04/19 Range/Units 20:09 05:23 05:23 APTT 60.4 H (22.0-30.0) sec Chloride 110 H (98-107) mmol/L BUN 27 H (9-20) mg/dL Creatinine 1.56 H (0.66-1.25) mg/dL Glucose 133 H (74-99) mg/dL POC Glucose (mg/dL) 224 H (75-99) mg/dL 07/04/19 Range/Units 06:20 APTT (22.0-30.0) sec Chloride (98-107) mmol/L BUN (9-20) mg/dL Creatinine (0.66-1.25) mg/dL Glucose (74-99) mg/dL POC Glucose (mg/dL) 130 H (75-99) mg/dL Assessment and Plan Assessment: Assessment and Plan Presyncope, likely due to paroxysmal atrial fibrillation/flutter Heart failure, combined diastolic and systolic dysfunction with EF 20-30% Elevated troponins, likely troponin leak from CKD, rule out ACS Acute kidney injury on probable chronic kidney disease Elevated transaminitis Diabetes mellitus with hyperglycemia Dyslipidemia Hypothyroidism Resolved: Hyperkalemia, metabolic acidosis Appears orthostatic from history. CTA rules out PE. Troponin 0.115, 0.126, 0.123 with EKG showing sinus tachycardia. ACS ruled out. Orthostats negative. Review of telemetry shows paroxysmal atrial flutter/fibrillation as per cardiology. Plans: Telemetry monitoring. Continue metoprolol 50 mg by mouth daily. Started on heparin drip, transition to NOAC on discharge. Echocardiogram shows EF 20-30% with severe global hypokinesis. Plans: Start Lasix 40 mg by mouth twice a day. Resume metoprolol and lisinopril. Would probably benefit from Aldactone, will discuss with cardiology. Follow cardiology recommendations. Troponin 0.115, 0.126, 0.123 with EKG showing sinus tachycardia. Likely troponin leak from CKD and heart failure. Plans: ACS ruled out. Resume aspirin with Lipitor and beta cameron. Plavix discontinued by cardiology. Follow Cardiology recommendations. Creatinine 1.59-1.46-1.56, baseline one month prior was 1.4. Likely from dehydration. Plans: DC IVF and encourage hydration by mouth. Avoid nephrotoxins. Daily BMP. AST 142, ALT 99. Unknown etiology. Lipid panel within normal limits. Plans: Follow hepatitis panel. [id number] glucose 130 . Plans: Insulin sliding scale. Regular Accu-Cheks. Hypoglycemic precautions. Plans: Continue Lipitor. Plans: Continue Synthroid. [Patient admitted for lightheadedness, resolved today. Found to be in A- Fib/Flutter, started on Heparin drip. Orthostats negative. Echocardiogram shows HFrEF, last Echo > 1 year ago per patient. He is pending clinical improvement, follow Cardiology recommendations. Likely DC in 1-2 days.]
[2019-07-04] MEDS ORDERED: METOPROLOL SUCCINATE (ER) 50 MG TAB.ER.24H PO STA (11:23)
--- NOTE | 2019-07-04 11:27 | P.PN ---
Subjective This is a pleasant 79-year-old male past medical history significant for coronary artery disease status post bypass grafting 1997 and subsequent stent placement to the circumflex in 2013, hypertension, dyslipidemia and former nicotine dependence. He follows in the office with Dr. Llanos. We have been asked to see him in consultation secondary to shortness of breath and troponin abnormality. Patient was seen and examined sitting up in the chair in no acute distress. He denies symptoms of chest discomfort, shortness of breath, dizzi ness or palpitations. He states overall he feels well. Laboratory data reviewed, CBC unremarkable, sodium 141, potassium 5.0, creatinine 1.56. Echocardiogram revealed severely impaired LV systolic function with ejection fraction 20-30%, global hypokinesia, mild TR and mild pulmonary hypertension with an RVSP of 44 mmHg. There is no old echo indicating the patient's previous function. The patient does not recall ever being told he has ischemic cardiomyopathy in the past. GENERAL: This is a 79-year-old male in no apparent distress at the time of my examination. HEENT: Head is atraumatic, normocephalic. Pupils are equal, round. Sclerae anicteric. Conjunctivae are clear. Mucous membranes of the mouth are moist. Neck is supple. There is no jugular venous distention. No carotid bruit is heard. LUNGS: Bibasilar rales, no wheezes or rhonchi. No chest wall tenderness is noted on palpation or with deep breathing. HEART: Regular rate and rhythm without murmurs, rubs or gallops. S1 and S2 heard. EXTREMITIES: No evidence of peripheral edema and no calf tenderness noted. ASSESSMENT Exertional shortness of breath and dizziness with elevated proBNP and rales on exam. Mild exacerbation of diastolic heart failure. Symptoms also could be related to paroxysmal A. fib. Paroxysmal atrial fibrillation/flutter with variable rates History of coronary artery disease status post bypass grafting Hypertension Dyslipidemia Troponin elevation, no typical rise and fall pattern to suggest an acute coronary event. PLAN NPO after midnight for further cardiac testing, possibly cardiac catheterizaton. This will be discussed with Dr. Llanos. The patient will be nothing by mouth after midnight tonight. This has been discussed in great detail with the patient and questions have been answered appropriately. Increase toprol to 100 mg dialy. Further recommendations to follow. Nurse Practitioner note has been reviewed, I agree with a documented findings and plan of care. Patient was seen and examined. Objective - Vital Signs Vital signs: Vital Signs Temp 98.7 F 07/04/19 11:11 Pulse 126 H 07/04/19 11:11 Resp 18 07/04/19 11:11 BP 124/82 07/04/19 11:11 Pulse Ox 96 07/04/19 11:11 Intake & Output 07/03/19 07/04/19 07/04/19 18:59 06:59 18:59 Intake Total 1480 888.357 266.777 Balance 1480 888.357 266.777 Weight 117.7 kg Intake: IV 400 700 Sodium Chloride 0.9% 1, 400 700 000 ml @ 100 mls/hr IV . Q10H [facility] Rx#:[id number] Intake, IV Titration 188.357 26.777 Amount Heparin Sod,Pork in 0.45% 188.357 26.777 NaCl 25,000 unit In 0.45 % NaCl 1 250ml.bag @ 8. 569 UNITS/KG/HR 10 mls/hr IV .Q24H SCOTT Rx#: [id number] Oral 1080 240 Other: Voiding Method Toilet Toilet - Labs CBC & Chem 7: 07/04/19 05:23 07/04/19 05:23 Labs: Abnormal Lab Results - Last 24 Hours (Table) 07/03/19 07/03/19 07/03/19 Range/Units 11:47 17:01 19:47 APTT 36.2 H (22.0-30.0) sec Chloride (98-107) mmol/L BUN (9-20) mg/dL Creatinine (0.66-1.25) mg/dL Glucose (74-99) mg/dL POC Glucose (mg/dL) 195 H 237 H (75-99) mg/dL 07/03/19 07/04/19 07/04/19 Range/Units 20:09 05:23 05:23 APTT 60.4 H (22.0-30.0) sec Chloride 110 H (98-107) mmol/L BUN 27 H (9-20) mg/dL Creatinine 1.56 H (0.66-1.25) mg/dL Glucose 133 H (74-99) mg/dL POC Glucose (mg/dL) 224 H (75-99) mg/dL 07/04/19 Range/Units 06:20 APTT (22.0-30.0) sec Chloride (98-107) mmol/L BUN (9-20) mg/dL Creatinine (0.66-1.25) mg/dL Glucose (74-99) mg/dL POC Glucose (mg/dL) 130 H (75-99) mg/dL
[2019-07-04 11:42] LABS: Glucose,Whole Blood 192 mg/dL (75-99)
[2019-07-04 17:14] LABS: Glucose,Whole Blood 184 mg/dL (75-99)
[2019-07-04] MEDS: ATORVASTATIN 40 MG TAB PO SCH (20:05)
[2019-07-04 20:26] LABS: Glucose,Whole Blood 194 mg/dL (75-99)
[2019-07-04] MEDS: ZOLPIDEM 10 MG TAB PO PRN (23:56)
[2019-07-05 06:09] LABS: Glucose,Whole Blood 148 mg/dL (75-99)
[2019-07-05 06:21] LABS: Basophils # (A) 0.1 k/uL (0-0.2); Basophils % (A) 1 %; Eosinophils # (A) 0.3 k/uL (0-0.7); Eosinophils % (A) 5 %; HCT 46.8 % (39.0-53.0); HGB 15.5 gm/dL (13.0-17.5); Lymphocytes # (A) 1.6 k/uL (1.0-4.8); Lymphocytes % (A) 28 %; Mean Platelet Volume 7.2; Monocytes # (A) 0.5 k/uL (0-1.0); Monocytes % (A) 8 %; Neutrophils # (A) 3.2 k/uL (1.3-7.7); Neutrophils % (A) 55 %; Platelet Count 175 k/uL (150-450); RBC 4.68 m/uL (4.30-5.90); RDW 14.1 % (11.5-15.5); WBC 5.9 k/uL (3.8-10.6)
[2019-07-05] MEDS: LEVOTHYROXINE 100 MCG TAB PO SCH (06:33)
[2019-07-05 06:35] LABS: Albumin 3.9 g/dL (3.5-5.0); Calcium 9.5 mg/dL (8.4-10.2); Potassium 4.7 mmol/L (3.5-5.1); Total Bilirubin 0.7 mg/dL (0.2-1.3); Total Protein 6.6 g/dL (6.3-8.2)
[2019-07-05 06:50] LABS: Creatine Kinase MB 1.6 ng/mL (0.0-2.4)
[2019-07-05] MEDS: INSULIN ASPART (NovoLOG) 100 UNIT/ML VIAL SQ SCH ×4 (07:36→22:16)
[2019-07-05] MEDS: LISINOPRIL 5 MG TAB PO SCH (09:32)
[2019-07-05] MEDS: FENOFIBRATE 160 MG TAB PO SCH (09:32)
[2019-07-05] MEDS: FUROSEMIDE 40 MG TAB PO SCH ×2 (09:32→16:51)
[2019-07-05] MEDS: ASPIRIN 81 MG PO SCH (09:32)
[2019-07-05] MEDS ORDERED: NITROGLYCERIN SL TABS 0.4 MG TAB SUBLINGUAL PRN (09:59)
[2019-07-05] MEDS ORDERED: ALPRAZolam 0.5 MG TAB PO PRN (09:59)
[2019-07-05] MEDS ORDERED: SODIUM CHLORIDE 0.9% 1,000 ML in EMPTY BAG 1 BAG IV ONE (09:59)
[2019-07-05] MEDS ORDERED: ALPRAZolam 0.25 MG TAB PO PRN (09:59)
[2019-07-05] MEDS ORDERED: ASPIRIN 81 MG PO ONE (10:02)
[2019-07-05] MEDS: METOPROLOL SUCCINATE (ER) 100 MG TAB.ER.24H PO SCH (10:25)
[2019-07-05] MEDS ORDERED: LIDOCAINE 1% INJ 10MG/ML (20 ML MDV) ONE (10:38)
[2019-07-05] MEDS ORDERED: MIDAZOLAM (PF) 2 MG/2 ML VIAL IV ONE (10:57)
[2019-07-05] MEDS ORDERED: LIDOCAINE 1% INJ 10MG/ML (20 ML MDV) SQ ONE (11:00)
[2019-07-05] MEDS ORDERED: METOPROLOL TARTRATE 5 MG/5 ML VIAL IVP ONE ×2 (11:00→11:03)
[2019-07-05] MEDS ORDERED: SODIUM CHLORIDE 0.9% 500 ML 500 ML IV ONE (11:04)
[2019-07-05] MEDS: DILTIAZEM 125 MG in SODIUM CHLORIDE 0.9% 100 ML IV SCH (11:20)
--- NOTE | 2019-07-05 11:21 | CDI ---
Documentation Clarification Form Date: 07/05/2019 11:02:19 AM From: Aliyah Alvarado RN, CCDS Admit Date: 07/02/2019 4:50:00 PM Patient Name: Rolly Lewis Visit Number: [id number] Discharge Date: ATTENTION: The Clinical Documentation Specialists (CDI) and [facility] Coding Staff appreciate your assistance in clarifying documentation. Please respond to the clarification below the line at the bottom and electronically sign. The CDI & [facility] Coding staff will review the response and follow-up if needed. Please note: Queries are made part of the Legal Health Record. If you have any questions, please contact the author of this message via ITS. Dr. Leigh Ann Tatum Patient was admitted with dizziness, lightheadedness, worsening shortness of breath. History/Risk Factors: Diabetes Mellitus, Hypertension, CAD Clinical Indicators: 79-year-old male who is admitted for dizziness. Acute kidney injury on probable CKD is documented in your ongoing progress notes, and further clarification is needed. Current BUN 31 CR 1.69 GFR: 39 On admission: BUN 32 CR 1.59 GFR:41 07/03/19 BUN 26 CR 1.46 GFR 46 07/04/19 BUN 27 CR 1.56 GFR 42 Treatment: IVF Monitor Labs: CBC, BUN, CR, Lytes In order to capture the severity of condition, please clarify if the condition signifies: CKD Stage 1 (GFR > 90) CKD Stage 2 (GFR 60-89) CKD Stage 3 (GFR 30-59) CKD Stage 4 (GFR 15-29) Other, please specify Unable to determine (Last Revision: January 2018) stage 3 MTDD
[2019-07-05] MEDS ORDERED: IOPAMIDOL-370 125ML BTL INJ ONE (11:37)
[2019-07-05] MEDS ORDERED: IOPAMIDOL-370 50ML BTL INJ ONE (11:38)
[2019-07-05] MEDS ORDERED: RX INFO: IV CONTRAST WAS GIVEN 1 EACH MISC MISCELLANE PRN (11:48)
--- NOTE | 2019-07-05 11:55 | P.PCN ---
Date of Procedure: 07/05/19 Operative Findings: CARDIAC CATHETERIZATION PERFORMING PHYSICIAN: Marques Llanos MD, RPVI PROCEDURE PERFORMED: 1. Selective right and left coronary angiogram 2. LIZ into LAD angiogram 3. SVG to RCA angiogram 4. Aortic root angiogram 2. Left heart catheterization INDICATION: This is a pleasant 79-year-old gentleman with history of CAD and prior coronary artery that is grafting as well as a stenting, the details are unknown because the patient underwent bypass at [facility] in 1995, was admitted to the hospital with a chest discomfort and ruled in for acute non-ST patient myocardial infarction. Also he was in and out atrial fibrillation/atrial flutter. Because of that heart catheterization was advised. COMPLICATION: None APPROACH: Right common femoral artery LEVEL OF SEDATION: Moderate with a sedation length of 46 minutes PROCEDURE DESCRIPTION: After obtaining an informed consent, the patient was brought to cardiac lab director. Local anesthesia was performed using lidocaine subcutaneously. The right common femoral artery was cannulated using Seldinger technique, the guidewire passed easily, following that we advanced a 6 Canadian sheath dilator assembly, the wire and dilator were removed and sheath was flushed. I did have during the procedure to switch into 55 cm 6-Canadian long sheath because of extreme tortuosity in the aortoiliac segments. Selective right and left coronary angiogram using a 6-Canadian JR4 and JL catheters. The SVG to RCA angiogram was performed using multipurpose catheter. The LIZ to LAD angiogram was performed using JR4 catheter. Following that we did left heart catheterization using 6-Canadian pigtail catheter. Subsequently I did perform aortic root angiogram using the pigtail catheter. The procedure was completed there was no complication. SELECTIVE CORONARY ANGIOGRAM: The right coronary artery: Is chronically occluded in the midportion. Left main: Has mild to moderate disease. Bifurcates into the circumflex and left anterior descending artery The left circumflex: Has mild disease only. The left anterior descending artery: It is chronically occluded in the proximal portion. CORONARY BYPASSES ANGIOGRAM - The LIZ to LAD is patent. The LIZ is feeding the LAD as well as large diagonal branch. - The SVG to RCA is patent. AORTIC ROOT ANGIOGRAM Was performed in the YULIET projection and using a power injection. There was no grafts to the left coronary system where opacified. HEMODYNAMICS: The LVEDP was 16 mmHg without significant gradient across aortic valve CONCLUSION: #1 severe two-vessel coronary artery disease with occluded LAD as well as occluded RCA #2 patent LIZ to LAD #3 patent SVG to RCA POSTPROCEDURE MANAGEMENT: #1 giving the above anatomy, I did recommend medical treatment. #2 follow-up with the patient
[2019-07-05] MEDS ORDERED: SODIUM CHLORIDE 0.9% 1,000 ML IV SCH (12:00)
[2019-07-05 12:39] LABS: Glucose,Whole Blood 161 mg/dL (75-99)
--- NOTE | 2019-07-05 12:45 | P.PN ---
Subjective Progress Note Date: 07/05/19 Principal diagnosis: Atrial fibrillation/flutter, CHF Patient was seen and examined. No acute events overnight. He denies any dizziness at this time. He denies any chest pain or palpitations. No nausea or vomiting. No fever or chills. Underwent cardiac catheterization this morning. Continues to be in A. fib with heart rate around 118. Objective - Vital Signs Vital signs: Vital Signs Temp 97.7 F 07/05/19 08:00 Pulse 122 H 07/05/19 08:00 Resp 18 07/05/19 08:00 BP 117/84 07/05/19 08:00 Pulse Ox 94 L 07/05/19 08:00 Intake & Output 07/04/19 07/05/19 07/05/19 18:59 06:59 18:59 Intake Total 1206.777 353 Balance 1206.777 353 Weight 115 kg Intake: IV 220 103 0.9% NS @ 20 mls/hr IV 120 Heparin Sod,Pork in 0.45% 100 NaCl 25,000 unit In 0.45 % NaCl 1 250ml.bag @ 8. 569 UNITS/KG/HR 10 mls/hr IV .Q24H [facility] Rx#: [id number] Intake, IV Titration 26.777 250 Amount Heparin Sod,Pork in 0.45% 26.777 250 NaCl 25,000 unit In 0.45 % NaCl 1 250ml.bag @ 8. 569 UNITS/KG/HR 10 mls/hr IV .Q24H SCOTT Rx#: [id number] Oral 960 Other: Voiding Method Toilet Toilet # Voids 2 - Exam General: [non toxic], [no distress], [appears at stated age] Derm: [warm], [dry] Head: [atraumatic], [normocephalic], [symmetric] Eyes: [EOMI], [no lid lag], [anicteric sclera] Mouth: [no lip lesion], [mucus membranes moist] Cardiovascular: [S1S2 reg], [tachycardic, irregularly irregular at times], [positive DP pulse bilateral], Lungs: [CTA bilateral], [no rhonchi, no rales] , [no accessory muscle use] Abdominal: [soft], [ nontender to palpation], [no guarding], [no appreciable organomegaly], [groin no hematoma] Ext: [no gross muscle atrophy], [no edema], [no contractures] Neuro: [no focal neuro deficits] Psych: [Alert], [oriented], [appropriate affect] - Labs CBC & Chem 7: 07/05/19 05:54 07/05/19 05:54 Labs: Abnormal Lab Results - Last 24 Hours (Table) 07/04/19 07/04/19 07/05/19 Range/Units 16:50 20:24 05:54 APTT 39.7 H (22.0-30.0) sec BUN (9-20) mg/dL Creatinine (0.66-1.25) mg/dL Glucose (74-99) mg/dL POC Glucose (mg/dL) 184 H 194 H (75-99) mg/dL 07/05/19 07/05/19 Range/Units 05:54 06:08 APTT (22.0-30.0) sec BUN 31 H (9-20) mg/dL Creatinine 1.69 H (0.66-1.25) mg/dL Glucose 160 H (74-99) mg/dL POC Glucose (mg/dL) 148 H (75-99) mg/dL Assessment and Plan Assessment: Assessment and Plan Atrial fibrillation/flutter Heart failure, combined diastolic and systolic dysfunction with EF 20-30% Elevated troponins, likely troponin leak from CKD, rule out ACS Acute kidney injury on probable chronic kidney disease Diabetes mellitus with hyperglycemia Dyslipidemia Hypothyroidism Resolved: Hyperkalemia, metabolic acidosis, elevated transaminitis CTA rules out PE. Troponin 0.115, 0.126, 0.123 with EKG showing sinus tachycardia. ACS ruled out. Orthostats negative. Review of telemetry shows paroxysmal atrial flutter/fibrillation as per cardiology. Plans: Telemetry monitoring. Increase metoprolol from 50 to 100 mg by mouth daily. Started on heparin drip, transition to NOAC on discharge. Started diltiazem drip today. Echocardiogram shows EF 20-30% with severe global hypokinesis. Plans: Start Lasix 40 mg by mouth twice a day. Resume metoprolol and lisinopril. Would probably benefit from Aldactone, will discuss with cardiology. Follow cardiology recommendations. Troponin 0.115, 0.126, 0.123 with EKG showing sinus tachycardia. Likely troponin leak from CKD and heart failure. Cardiac catheterization shows double vessel disease. Plans: Cardiology recommends medical management after cardiac catheterization. ACS ruled out. Resume aspirin with Lipitor and beta cameron. Plavix discontinued by cardiology. Follow Cardiology recommendations. Creatinine 1.59-1.46-1.56-1.69, baseline one month prior was 1.4. Likely from dehydration. Plans: DC IVF and encourage hydration by mouth. Avoid nephrotoxins. Daily BMP. [id number] glucose 130 . Plans: Insulin sliding scale. Regular Accu-Cheks. Hypoglycemic precautions. Plans: Continue Lipitor. Plans: Continue Synthroid. [Patient admitted for lightheadedness, resolved today. Found to be in A- Fib/Flutter, started on Cardizem drip and Heparin drip. Orthostats negative. Echocardiogram shows HFrEF, new onset. He is pending clinical improvement, follow Cardiology recommendations. Likely DC in 1-2 days.]
[2019-07-05] MEDS ORDERED: DILTIAZEM DRIP BOLUS FROM BAG 1 MG SOLN IV ONE (12:48)
[2019-07-05] MEDS: HEPARIN SOD,PORK IN 0.45% NACL 25,000 UNIT in 0.45% NACL 1 250ML.BAG IV SCH (14:04)
[2019-07-05] MEDS: APIXABAN 5 MG TAB PO SCH (16:51)
[2019-07-05 17:17] LABS: Glucose,Whole Blood 253 mg/dL (75-99)
[2019-07-05] MEDS: ATORVASTATIN 40 MG TAB PO SCH (21:41)
[2019-07-05 21:55] LABS: Glucose,Whole Blood 183 mg/dL (75-99)
[2019-07-05] MEDS: ZOLPIDEM 10 MG TAB PO PRN (22:18)
[2019-07-06 06:26] LABS: Basophils % (A) 1 %; Eosinophils # (A) 0.3 k/uL (0-0.7); Eosinophils % (A) 5 %; HCT 44.9 % (39.0-53.0); Lymphocytes # (A) 1.3 k/uL (1.0-4.8); Lymphocytes % (A) 20 %; MCHC 33.4 g/dL (31.0-37.0); MCV 98.6 fL (80.0-100.0); Mean Platelet Volume 6.7; Monocytes # (A) 0.5 k/uL (0-1.0); Monocytes % (A) 8 %; Neutrophils % (A) 64 %; Platelet Count 172 k/uL (150-450); RBC 4.55 m/uL (4.30-5.90); RDW 12.6 % (11.5-15.5); WBC 6.3 k/uL (3.8-10.6)
[2019-07-06 07:05] LABS: Glucose,Whole Blood 165 mg/dL (75-99)
[2019-07-06] MEDS: LEVOTHYROXINE 100 MCG TAB PO SCH (07:09)
[2019-07-06] MEDS: INSULIN ASPART (NovoLOG) 100 UNIT/ML VIAL SQ SCH ×3 (07:10→17:25)
[2019-07-06] MEDS: FENOFIBRATE 160 MG TAB PO SCH (09:45)
[2019-07-06] MEDS: APIXABAN 5 MG TAB PO SCH ×2 (09:45→17:24)
[2019-07-06] MEDS: ASPIRIN 81 MG PO SCH (09:45)
[2019-07-06] MEDS: LISINOPRIL 5 MG TAB PO SCH (09:45)
[2019-07-06] MEDS: FUROSEMIDE 40 MG TAB PO SCH ×2 (09:45→16:21)
[2019-07-06] MEDS: METOPROLOL SUCCINATE (ER) 100 MG TAB.ER.24H PO SCH (09:46)
--- NOTE | 2019-07-06 12:20 | P.DS ---
Providers Date of admission: 07/02/19 16:50 Expected date of discharge: 07/06/19 Attending physician: Leigh Ann Tatum MD Consults: 07/02/19 16:30 Consult Physician Routine Consulting Provider: Corey Rome Consult Reason/Comments: elevated troponin, dyspnea Do you want consulting provider notified?: Already Contacted Primary care physician: [facility] Course: 79-year-old male with PMH of diabetes mellitus, hypertension, hyperlipidemia, CAD status post CABG, former smoker presents to the ED for dizziness. Patient reports lightheadedness that has been ongoing for the past 3 weeks to 1 month. Dizziness is worse when going from a sitting to standing position. Patient also reports progressively worsening shortness of breath that has been getting worse over the same time period as well. Patient states he used to be able to walk 2 blocks before feeling short of breath, but now can barely walk one half of a block. He reports no PND or lower extremity edema. In the ED, vital signs were stable except for pulse as high as 124. CBC showed microcytosis of 101. D-dimer was elevated at 0.7, CTA chest ruled out PE. CMP showed a potassium of 5.3, bicarbonate of 19, BUN 32, creatinine of 1.59, glucose of 295, AST 142, ALT 99. Troponin was 0.115, EKG showing sinus tachycardia. BNP was 2110, chest x-ray showing cardiomegaly without acute process. CTA chest did show a thoracic aneurysm measuring 4.7 cm. Patient is admitted for dizziness, elevated troponins, cardiology consultation. With regard to his lightheadedness, CTA chest ruled out PE. Plan was to obtain orthostats, which was negative and to rule out acute coronary syndrome. Troponin was noted to be elevated at 0.115, 0.126, 0.123 with EKG showing sinus tachycardia. Cardiology was consulted and recommended echocardiogram and cardiac catheterization for elevated troponins. Cardiac catheterization showed severe two-vessel coronary artery disease with occluded LAD and RCA. Medical management was recommended post catheterization. Echocardiogram showed EF 20- 30% with severe global hypokinesis. Patient was started on Lasix by mouth and continued on metoprolol and lisinopril for concerns of heart failure. Cardiology was able to review telemetry strips which show that the patient was in atrial fibrillation/flutter. His metoprolol was increased from 50 mg to 100 mg by mouth daily, but his tachycardia persisted at about 120. He was started on a diltiazem drip overnight on 07/05/2019 and his heart rate improved to 70s. Patient was also started on a heparin drip which was discontinued and patient was transitioned to Eliquis for anticoagulation. Diltiazem drip was discontinued and patient was encouraged to ambulate the hallways. Patient was seen and examined. No acute events overnight. Patient reports complete resolution of dizziness. He denies any chest pain, shortness breath or palpitations. No nausea or vomiting. No fever or chills. General: [non toxic], [no distress], [appears at stated age] Derm: [warm], [dry] Head: [atraumatic], [normocephalic], [symmetric] Eyes: [EOMI], [no lid lag], [anicteric sclera] Mouth: [no lip lesion], [mucus membranes moist] Cardiovascular: [S1S2 reg], [irregularly irregular at times], [positive DP pulse bilateral], Lungs: [CTA bilateral], [no rhonchi, no rales] , [no accessory muscle use] Abdominal: [soft], [ nontender to palpation], [no guarding], [no appreciable organomegaly], [groin no hematoma] Ext: [no gross muscle atrophy], [no edema], [no contractures] Neuro: [no focal neuro deficits] Psych: [Alert], [oriented], [appropriate affect] Assessment and Plan Atrial fibrillation/flutter Heart failure, combined diastolic and systolic dysfunction with EF 20-30% Elevated troponins, likely troponin leak from CKD, rule out ACS Acute kidney injury on probable chronic kidney disease Diabetes mellitus with hyperglycemia Dyslipidemia Hypothyroidism Resolved: Hyperkalemia, metabolic acidosis, elevated transaminitis CTA rules out PE. Troponin 0.115, 0.126, 0.123 with EKG showing sinus tachycardia. ACS ruled out. Orthostats negative. Review of telemetry shows paroxysmal atrial flutter/fibrillation as per cardiology. Plans: Telemetry monitoring. Continue metoprolol 100 mg by mouth daily. Diltiazem drip discontinued, patient encouraged to ambulate hallway. Heparin drip discontinued and patient started on Eliquis. Echocardiogram shows EF 20-30% with severe global hypokinesis. Plans: Start Lasix 40 mg by mouth twice a day. Resume metoprolol and lisinopril. Would probably benefit from Aldactone, follow with cardiology in the outpatient setting. Follow cardiology recommendations. Troponin 0.115, 0.126, 0.123 with EKG showing sinus tachycardia. Likely troponin leak from CKD and heart failure. Cardiac catheterization shows double vessel disease. Plans: Cardiology recommends medical management after cardiac catheterization. ACS ruled out. Resume aspirin with Lipitor and beta cameron. Plavix discontinued by cardiology. Follow Cardiology recommendations. Creatinine 1.59-1.46-1.56-1.69, baseline one month prior was 1.4. Likely from dehydration. Plans: DC IVF and encourage hydration by mouth. Avoid nephrotoxins. Daily BMP. [id number] glucose 165. Plans: Insulin sliding scale. Regular Accu-Cheks. Hypoglycemic precautions. Plans: Continue Lipitor. Plans: Continue Synthroid. [Hopeful discharge today pending cardiology clearance and recommendations. Atrial fibrillation is rate controlled now, diltiazem drip discontinued, con tinued metoprolol, Eliquis for anticoagulation. On appropriate medications for heart failure. Elevated troponins, cardiac catheterization shows double vessel disease, medical management recommended. He is to follow-up with his PCP in 1-2 days of discharge. Follow-up with cardiology within 1 week of discharge.] Pertinent Studies: Chest x-ray, chest CTA, echocardiogram Procedures: Cardiac catheterization Patient Condition at Discharge: Stable Plan - Discharge Summary New Discharge Prescriptions: New Apixaban [Eliquis] 5 mg PO BID #60 tab Furosemide [Lasix] 40 mg PO BID@0900,1600 #60 tab Nitroglycerin Sl Tabs [Nitrostat] 0.4 mg SUBLINGUAL Q5M PRN tab PRN Reason: Chest Pain Metoprolol Succinate (ER) [Toprol XL] 100 mg PO DAILY #30 tab.er.24h Continue Zolpidem [Ambien] 10 mg PO HS PRN PRN Reason: Insomnia Clopidogrel Bisulfate [Plavix] 75 mg PO DAILY metFORMIN HCL [metFORMIN HCL ER Osmotic] 1,000 mg PO BID glipiZIDE XL [Glucotrol XL] 10 mg PO BID Meloxicam 15 mg PO DAILY Lisinopril [Zestril] 5 mg PO DAILY Fenofibrate 160 mg PO HS Simvastatin [Zocor] 20 mg PO HS Pioglitazone HCl 30 mg PO DAILY Levothyroxine Sodium [Synthroid] 100 mcg PO DAILY Discontinued Aspirin EC [Ecotrin Low Dose] 81 mg PO HS Metoprolol Succinate (ER) [Toprol Xl] 50 mg PO DAILY Discharge Medication List Clopidogrel Bisulfate [Plavix] 75 mg PO DAILY 07/02/19 [History] Fenofibrate 160 mg PO HS 07/02/19 [History] Levothyroxine Sodium [Synthroid] 100 mcg PO DAILY 07/02/19 [History] Lisinopril [Zestril] 5 mg PO DAILY 07/02/19 [History] Meloxicam 15 mg PO DAILY 07/02/19 [History] Pioglitazone HCl 30 mg PO DAILY 07/02/19 [History] Simvastatin [Zocor] 20 mg PO HS 07/02/19 [History] Zolpidem [Ambien] 10 mg PO HS PRN 07/02/19 [History] glipiZIDE XL [Glucotrol XL] 10 mg PO BID 07/02/19 [History] metFORMIN HCL [metFORMIN HCL ER Osmotic] 1,000 mg PO BID 07/02/19 [History] Apixaban [Eliquis] 5 mg PO BID #60 tab 07/06/19 [Rx] Furosemide [Lasix] 40 mg PO BID@0900,1600 #60 tab 07/06/19 [Rx] Metoprolol Succinate (ER) [Toprol XL] 100 mg PO DAILY #30 tab.er.24h 07/06/19 [Rx] Nitroglycerin Sl Tabs [Nitrostat] 0.4 mg SUBLINGUAL Q5M PRN tab 07/06/19 [Rx] Follow up Appointment(s)/Referral(s): Marques Llanos MD [STAFF PHYSICIAN] - 07/12/19 2:45 pm (With Tamara BRADY) Aleah Jimenez NPC [Nurse Practitioner] - 07/09/19 10:00 am Patient Instructions/Handouts: *[facility] - After Heart Catheterization - Lab Aide Instructions, A-fib (Atrial Fibrillation) (DC), Safe Use of Anticoagulants (DC) Activity/Diet/Wound Care/Special Instructions: Diet: Heart healthy, low-salt with water restriction Follow-up PCP within 1-2 days of discharge. Follow-up with cardiology with the appointment given to you. Take all medications as advised. Discharge Disposition: HOME SELF-CARE
[2019-07-06 13:12] LABS: Glucose,Whole Blood 281 mg/dL (75-99)
[2019-07-06 15:22] VITALS: PULSE 58; RESP 16
--- NOTE | 2019-07-06 16:23 | P.PN ---
Subjective Progress Note Date: 07/06/19 This is a pleasant 79-year-old male past medical history significant for coronary artery disease status post bypass grafting 1997 and subsequent stent placement to the circumflex in 2013, hypertension, dyslipidemia and former nicotine dependence. He follows in the office with Dr. Llanos. We have been asked to see him in consultation secondary to shortness of breath and troponin abnormality. He presented to the hospital with symptoms of shortness of breath over the previous month. His shortness of breath is typically with exertion but does occur at times at rest. He also complains of feeling dizzy or lightheaded with position changes. For the previous couple of weeks when he checks his blood pressure at home he notices his heart rate on average range is between 120 and 130. EKG on admission reveals sinus tachycardia with first-degree AV block heart rate of 121 with nonspecific changes. Chest x-ray reveals cardiomegaly and chronic parenchymal changes with no acute process. 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 Laboratory data reviewed, WBC 5.9, hemoglobin 15.6, platelets 185, d-dimer 0.7, sodium 140, potassium on admission 5. 3 repeat today 4.8, creatinine 1.59 on admission repeat today 1.46, magnesium 1.6, proBNP is 2110, LDL 24 and TSH 2.83., troponin 0.115, 0.126 and 0.123. Current daily cardiac medications include Toprol 50 mg daily, lisinopril 5 mg daily, aspirin 81 mg daily, Plavix 75 mg daily and simvastatin 20 mg daily. Orthostatics requested are unremarkable. Telemetry tracings and repeat EKG's reviewed. Patient is having episodes of paroxysmal atrial flutter and fibrillation. 07/06/2019 Patient underwent a cardiac catheterization yesterday which revealed severe two- vessel coronary artery disease with occluded LAD and RCA, patent LIZ to the LAD and patent SVG to the RCA. Medical therapy was advised. Patient today continues to be in atrial fibrillation, his heart rate is in the 80s. We will discontinue the IV Cardizem drip and start the patient on Eliquis today. We will also discontinue the baby aspirin and continue the patient on a Plavix daily. From our perspective he may be able to be discharged home today to follow-up in the office post discharge. Echocardiogram with Doppler study revealed an ejection fraction of 20-30%. Objective - Vital Signs Vital signs: Vital Signs Temp 97.9 F 07/06/19 11:20 Pulse 58 L 07/06/19 15:14 Resp 16 07/06/19 15:14 BP 98/62 07/06/19 11:20 Pulse Ox 94 L 07/06/19 11:20 Intake & Output 07/05/19 07/06/19 07/06/19 18:59 06:59 18:59 Intake Total 593 640 Output Total 350 450 Balance 243 -450 640 Weight 114.7 kg Intake: IV 103 Intake, IV Titration 250 40 Amount Diltiazem 125 mg In 40 Sodium Chloride 0.9% 100 ml @ 10 MG/HR 10 mls/hr IV .[id number] [facility] Rx#: [id number] Heparin Sod,Pork in 0.45% 250 NaCl 25,000 unit In 0.45 % NaCl 1 250ml.bag @ 8. 569 UNITS/KG/HR 10 mls/hr IV .Q24H [facility] Rx#: [id number] Oral 240 600 Output: Urine 350 450 Other: Voiding Method Toilet Toilet # Voids 2 - Exam GENERAL: This is a 79-year-old male in no apparent distress at the time of my examination. HEENT: Head is atraumatic, normocephalic. Pupils are equal, round. Sclerae anicteric. Conjunctivae are clear. Mucous membranes of the mouth are moist. Neck is supple. There is no jugular venous distention. No carotid bruit is heard. LUNGS: Bibasilar rales, no wheezes or rhonchi. No chest wall tenderness is noted on palpation or with deep breathing. HEART: Regular rate and rhythm without murmurs, rubs or gallops. S1 and S2 heard. ABDOMEN: Soft, nontender. Bowel sounds are heard. No organomegaly noted. EXTREMITIES: No evidence of peripheral edema and no calf tenderness noted. VASCULAR: Radial and dorsalis pedis pulses palpated, no evidence of clubbing. NEUROLOGIC: Patient is awake, alert and oriented x3. - Labs CBC & Chem 7: 07/06/19 05:29 07/05/19 05:54 Labs: Abnormal Lab Results - Last 24 Hours (Table) 07/05/19 07/05/19 07/06/19 Range/Units 16:49 21:44 07:03 POC Glucose (mg/dL) 253 H 183 H 165 H (75-99) mg/dL 07/06/19 Range/Units 12:51 POC Glucose (mg/dL) 281 H (75-99) mg/dL Assessment and Plan Plan: Assessment and plan #1 Exertional shortness of breath and dizziness with elevated proBNP and rales on exam. Mild exacerbation of diastolic heart failure. Symptoms also could be related to paroxysmal A. fib. #2 Paroxysmal atrial fibrillation with variable rates #3 History of coronary artery disease status post bypass grafting #4 Hypertension #5Dyslipidemia #6Troponin elevation status post cardiac catheterization which revealed a patent LIZ to the LAD and patent saphenous vein graft. Medical therapy advised. Plan Patient has been started on Eliquis 5 mg one tablet by mouth twice a day, aspirin has been discontinued but patient will continue on Plavix 75 mg daily along with Lasix, lisinopril 5 mg daily, metoprolol 100 mg daily, follow-up appointment in the office post discharge. DNP note has been reviewed, I agree with a documented findings and plan of care. Patient was seen and examined.
[2019-07-06 16:27] VITALS: BP 96/62; TEMP 98.6
[2019-07-06 17:12] LABS: Glucose,Whole Blood 254 mg/dL (75-99)
[2019-07-06] MEDS: ATORVASTATIN 40 MG TAB PO SCH (17:25)
[2019-07-06] MEDS: DILTIAZEM 125 MG in SODIUM CHLORIDE 0.9% 100 ML IV SCH (17:30)
--- NOTE | 2019-07-06 17:46 | CDI ---
Documentation Clarification Form Date: 07/06/2019 5:07:55 PM From: Aliyah Alvarado RN, CCDS Admit Date: 07/02/2019 4:50:00 PM Patient Name: Rolly Lewis Visit Number: [id number] Discharge Date: ATTENTION: The Clinical Documentation Specialists (CDI) and [facility] Coding Staff appreciate your assistance in clarifying documentation. Please respond to the clarification below the line at the bottom and electronically sign. The CDI & [facility] Coding staff will review the response and follow-up if needed. Please note: Queries are made part of the Legal Health Record. If you have any questions, please contact the author of this message via ITS. Dr. Nimesh Teran Atrial Flutter is documented in the consult and ongoing progress notes and further clarification is needed. History/Risk factors: Hypertension, Coronary artery disease, Diabetes Mellitus, Clinical Indicators:79-year-old male present with shortness of breath and troponin abnormality. EKG/telemetry: Paroxysmal Atrial Fibrillation, Atrial Flutter with variable rates ECHO: severely impaired LV systolic function with ejection fraction 20-30 % Labs: BUN 32, CR 1.59, BNP 2110, Vital signs: 121/87 121 18, 115/94 124 22, 112/90 123 20 Chest x-ray: cardiomegaly Treatment: Cardiac Monitoring Cardizem drip, Heparin drop Monitor CBC, Lytes, Troponin level Toprol 100 mg po daily, Lisinopril 5 mg po daily, Asa, Eliquis po bid In your professional opinion, in order to capture the severity of condition; can you please clarify the type of Atrial Flutter if known? Typical/Type I Atypical/Type II Other, please specify Unable to determine (Last Revision: January 2018) atypical MTDD
[2019-07-07] MEDS ORDERED: CLOPIDOGREL 75 MG TAB PO SCH (09:00)
== END 2019-07-06 18:07 | disposition home or self-care (01) | DRG 286 ==
LOC: EC 13:06 → 3SCARD 16:50
PROVIDERS: ADMIT Family Medicine; ATTEND Family Medicine
PROC: B2181ZZ Fluoroscopy of Left Internal Mammary Bypass Graft using Low Osmolar Contrast (ICD-10-PCS; 2019-07-05)
PROC: B2121ZZ Fluoroscopy of Single Coronary Artery Bypass Graft using Low Osmolar Contrast (ICD-10-PCS; 2019-07-05)
PROC: B3101ZZ Fluoroscopy of Thoracic Aorta using Low Osmolar Contrast (ICD-10-PCS; 2019-07-05)
PROC: B2111ZZ Fluoroscopy of Multiple Coronary Arteries using Low Osmolar Contrast (ICD-10-PCS; principal; 2019-07-05 10:44)
PROC: 4A023N7 Measurement of Cardiac Sampling and Pressure, Left Heart, Percutaneous Approach (ICD-10-PCS; 2019-07-05 10:44)
DX: I48.0 Paroxysmal atrial fibrillation (principal); I50.43 Acute on chronic combined systolic (congestive) and diastolic (congestive) heart failure; N17.9 Acute kidney failure, unspecified; E87.2 Acidosis; I13.0 Hypertensive heart and chronic kidney disease with heart failure and stage 1 through stage 4 chronic kidney disease, or unspecified chronic kidney disease; I48.3 Typical atrial flutter; I25.10 Atherosclerotic heart disease of native coronary artery without angina pectoris; E11.65 Type 2 diabetes mellitus with hyperglycemia; E11.22 Type 2 diabetes mellitus with diabetic chronic kidney disease; E87.5 Hyperkalemia; E86.0 Dehydration; I07.1 Rheumatic tricuspid insufficiency; I27.20 Pulmonary hypertension, unspecified; I71.2 Thoracic aortic aneurysm, without rupture; N18.3 Chronic kidney disease, stage 3 (moderate); I44.0 Atrioventricular block, first degree; E03.9 Hypothyroidism, unspecified; E78.5 Hyperlipidemia, unspecified; R79.89 Other specified abnormal findings of blood chemistry; I25.2 Old myocardial infarction; M19.90 Unspecified osteoarthritis, unspecified site; Z79.02 Long term (current) use of antithrombotics/antiplatelets; Z79.1 Long term (current) use of non-steroidal anti-inflammatories (NSAID); Z79.82 Long term (current) use of aspirin; Z79.84 Long term (current) use of oral hypoglycemic drugs; Z79.890 Hormone replacement therapy; Z79.899 Other long term (current) drug therapy; Z86.59 Personal history of other mental and behavioral disorders; Z95.5 Presence of coronary angioplasty implant and graft; Z95.1 Presence of aortocoronary bypass graft; Z87.891 Personal history of nicotine dependence; Z82.49 Family history of ischemic heart disease and other diseases of the circulatory system; Z82.3 Family history of stroke
CPT/HCPCS: 36415; 71045; 71275; 80048; 80053; 80061; 80074; 82009; 82550; 82553; 83735; 83880; 84443; 84484; 85025; 85379; 85610; 85730; 93005; 93306; 93459; 93567; 96374; 99285

== ENCOUNTER 2020-03-19 01:16 | Inpatient (IN) | payer MEDICARE ==
[2020-03-19] MEDS ORDERED: SODIUM CHLORIDE 0.9% 1,000 ML IV STA ×2 (01:39→03:13)
[2020-03-19] MEDS ORDERED: ONDANSETRON 4 MG/2 ML VIAL IVP STA (01:39)
[2020-03-19] MEDS ORDERED: MORPHINE SULFATE 4 MG/ML SYRINGE IV STA (01:39)
--- NOTE | 2020-03-19 01:40 | ED ---
Abdominal Pain HPI - General Chief Complaint: Abdominal Pain Stated Complaint: Abdominal pain Time Seen by Provider: 03/19/20 01:19 Source: patient Mode of arrival: wheelchair Limitations: no limitations - Related Data Home Medications Medication Instructions Recorded Confirmed RX: Fenofibrate 160 mg PO HS 07/02/19 11/25/19 RX: Levothyroxine Sodium 100 mcg PO DAILY 07/02/19 11/25/19 [Synthroid] RX: Lisinopril [Zestril] 5 mg PO DAILY 07/02/19 11/25/19 RX: Meloxicam 15 mg PO DAILY PRN 07/02/19 11/23/19 RX: Pioglitazone HCl 30 mg PO DAILY 07/02/19 11/25/19 RX: Zolpidem [Ambien] 10 mg PO HS PRN 07/02/19 11/23/19 RX: glipiZIDE XL [Glucotrol XL] 10 mg PO BID 07/02/19 11/25/19 RX: metFORMIN HCL [metFORMIN HCL 1,000 mg PO BID 07/02/19 11/25/19 ER Osmotic] Aspirin EC [Ecotrin Low Dose] 81 mg PO HS 11/23/19 11/25/19 Atorvastatin [Lipitor] 40 mg PO HS 11/23/19 11/25/19 RX: Spironolactone 25 mg PO QAM 11/23/19 11/25/19 Previous Rx's Medication Instructions Recorded RX: Apixaban [Eliquis] 5 mg PO BID #60 tab 07/06/19 RX: Metoprolol Succinate (ER) 100 mg PO DAILY #30 tab.er.24h 07/06/19 [Toprol XL] RX: Nitroglycerin Sl Tabs 0.4 mg SUBLINGUAL Q5M PRN tab 07/06/19 [Nitrostat] Allergies Allergy/AdvReac Type Severity Reaction Status Date / Time No Known Allergies Allergy Verified 03/19/20 01:24 Review of Systems ROS Statement: Those systems with pertinent positive or pertinent negative responses have been documented in the HPI. ROS Other: All systems not noted in ROS Statement are negative. Past Medical History Past Medical History: Atrial Fibrillation, Coronary Artery Disease (CAD), Heart Failure, Diabetes Mellitus, Hyperlipidemia, Hypertension, Myocardial Infarction (ID), Osteoarthritis (OA), Thyroid Disorder Additional Past Medical History / Comment(s): SOB since ID, has cold and runny nose, pooir circulation in paulo legs, "enlarged lower bowel"-large bowel movements "all my life", leakage of stool, now loose stools, hx diverticulitis, "little bumps on face", Last Myocardial Infarction Date:: 1997 History of Any Multi-Drug Resistant Organisms: None Reported Past Surgical History: Coronary Bypass/CABG, Heart Catheterization, Heart Catheterization With Stent, Orthopedic Surgery, Tonsillectomy Additional Past Surgical History / Comment(s): CABG-quad 1997, arthroscopy rt knee, paulo cataracts, one cardiac stent Past Anesthesia/Blood Transfusion Reactions: No Reported Reaction Date of Last Stent Placement:: 11/2013 Past Psychological History: Anxiety Smoking Status: Former smoker Past Alcohol Use History: None Reported Past Drug Use History: None Reported - Past Family History Mother Family Medical History: Cancer, CVA/TIA Additional Family Medical History / Comment(s): skin Father Family Medical History: Cancer, CVA/TIA Additional Family Medical History / Comment(s): throat cancer Brother(s) Family Medical History: Cancer Additional Family Medical History / Comment(s): skin General Exam Limitations: no limitations Course Vital Signs 03/19/20 03/19/20 01:24 03:27 Temperature 97.3 F L 97.7 F Pulse Rate 105 H 101 H Respiratory 18 19 Rate Blood Pressure 122/87 115/83 O2 Sat by Pulse 99 96 Oximetry Medical Decision Making - Lab Data Result diagrams: 03/19/20 01:49 03/19/20 01:49 Lab Results 03/19/20 03/19/20 03/19/20 Range/Units 01:49 01:49 01:49 WBC 7.1 (3.8-10.6) k/uL RBC 3.85 L (4.30-5.90) m/uL Hgb 12.7 L (13.0-17.5) gm/dL Hct 40.2 (39.0-53.0) % MCV 104.4 H (80.0-100.0) fL MCH 33.0 (25.0-35.0) pg MCHC 31.6 (31.0-37.0) g/dL RDW 13.5 (11.5-15.5) % Plt Count 183 (150-450) k/uL Neutrophils % 66 % Lymphocytes % 19 % Monocytes % 9 % Eosinophils % 3 % Basophils % 0 % Neutrophils # 4.6 (1.3-7.7) k/uL Lymphocytes # 1.3 (1.0-4.8) k/uL Monocytes # 0.7 (0-1.0) k/uL Eosinophils # 0.2 (0-0.7) k/uL Basophils # 0.0 (0-0.2) k/uL Macrocytosis Slight Sodium 138 (137-145) mmol/L Potassium 5.7 H (3.5-5.1) mmol/L Chloride 108 H (98-107) mmol/L Carbon Dioxide 21 L (22-30) mmol/L Anion Gap 9 mmol/L BUN 74 H (9-20) mg/dL Creatinine 2.36 H (0.66-1.25) mg/dL Est GFR (CKD-EPI)AfAm 30 (>60 ml/min/1.73 sqM) Est GFR (CKD-EPI)NonAf 26 (>60 ml/min/1.73 sqM) Glucose 105 H (74-99) mg/dL Plasma Lactic Acid Loc 0.8 (0.7-2.0) mmol/L Calcium 9.7 (8.4-10.2) mg/dL Phosphorus 4.8 H (2.5-4.5) mg/dL Magnesium 2.3 (1.6-2.3) mg/dL Total Bilirubin 0.4 (0.2-1.3) mg/dL AST 33 (17-59) U/L ALT 19 (4-49) U/L Alkaline Phosphatase 69 (38-126) U/L Troponin I (0.000-0.034) ng/mL Total Protein 7.3 (6.3-8.2) g/dL Albumin 4.4 (3.5-5.0) g/dL Amylase 72 (30-110) U/L Lipase 187 (23-300) U/L 03/19/20 Range/Units 01:49 WBC (3.8-10.6) k/uL RBC (4.30-5.90) m/uL Hgb (13.0-17.5) gm/dL Hct (39.0-53.0) % MCV (80.0-100.0) fL MCH (25.0-35.0) pg MCHC (31.0-37.0) g/dL RDW (11.5-15.5) % Plt Count (150-450) k/uL Neutrophils % % Lymphocytes % % Monocytes % % Eosinophils % % Basophils % % Neutrophils # (1.3-7.7) k/uL Lymphocytes # (1.0-4.8) k/uL Monocytes # (0-1.0) k/uL Eosinophils # (0-0.7) k/uL Basophils # (0-0.2) k/uL Macrocytosis Sodium (137-145) mmol/L Potassium (3.5-5.1) mmol/L Chloride (98-107) mmol/L Carbon Dioxide (22-30) mmol/L Anion Gap mmol/L BUN (9-20) mg/dL Creatinine (0.66-1.25) mg/dL Est GFR (CKD-EPI)AfAm (>60 ml/min/1.73 sqM) Est GFR (CKD-EPI)NonAf (>60 ml/min/1.73 sqM) Glucose (74-99) mg/dL Plasma Lactic Acid Loc (0.7-2.0) mmol/L Calcium (8.4-10.2) mg/dL Phosphorus (2.5-4.5) mg/dL Magnesium (1.6-2.3) mg/dL Total Bilirubin (0.2-1.3) mg/dL AST (17-59) U/L ALT (4-49) U/L Alkaline Phosphatase (38-126) U/L Troponin I 0.061 H* (0.000-0.034) ng/mL Total Protein (6.3-8.2) g/dL Albumin (3.5-5.0) g/dL Amylase (30-110) U/L Lipase (23-300) U/L Disposition Clinical Impression: Dizziness, Abdominal pain, Diverticulitis Disposition: ADMITTED IP TO THIS HOSP Condition: Good Is patient prescribed a controlled substance at d/c from ED?: No Referrals: Kristian Fisher MD [Primary Care Provider] - 1-2 days
[2020-03-19 02:20] LABS: Basophils % (A) 0 %; Eosinophils # (A) 0.2 k/uL (0-0.7); Eosinophils % (A) 3 %; HCT 40.2 % (39.0-53.0); HGB 12.7 gm/dL (13.0-17.5); Lymphocytes # (A) 1.3 k/uL (1.0-4.8); Lymphocytes % (A) 19 %; MCHC 31.6 g/dL (31.0-37.0); MCV 104.4 fL (80.0-100.0); Macrocytosis Slight; Mean Platelet Volume 7.7; Monocytes # (A) 0.7 k/uL (0-1.0); Monocytes % (A) 9 %; Neutrophils # (A) 4.6 k/uL (1.3-7.7); Neutrophils % (A) 66 %; Platelet Count 183 k/uL (150-450); RBC 3.85 m/uL (4.30-5.90); RDW 13.5 % (11.5-15.5); WBC 7.1 k/uL (3.8-10.6)
[2020-03-19 02:24] LABS: Albumin 4.4 g/dL (3.5-5.0); Calcium 9.7 mg/dL (8.4-10.2); Magnesium 2.3 mg/dL (1.6-2.3); Phosphorus 4.8 mg/dL (2.5-4.5); Potassium 5.7 mmol/L (3.5-5.1); Total Bilirubin 0.4 mg/dL (0.2-1.3); Total Protein 7.3 g/dL (6.3-8.2)
--- NOTE | 2020-03-19 03:15 | CT ---
EXAMINATION TYPE: CT abdomen pelvis wo con DATE OF EXAM: 03/19/2020 COMPARISON: None HISTORY: abdominal pain CT DLP: 1810 mGycm Automated exposure control for dose reduction was used. There is some interstitial infiltrate and atelectasis in both lower lobes. Heart is enlarged. There i s minimal pleural thickening at the right lung base. There is no pericardial effusion. There is no pl eural effusion. Liver shows no focal defect. Spleen is intact. Stomach is intact. There is no evidence of pancreatic mass. Gallbladder appears normal. Bile ducts are not dilated. There is no adrenal mass. Kidneys have fairly normal size. There is 4.5 cm cortical cyst interpolar r ight kidney. There are smaller renal cortical cysts. There is no hydronephrosis. Ureters are not dila jair. There is calcification posterior left kidney measuring up to 4 mm. Calcification is somewhat bianca ear in this could be vascular. There is no retroperitoneal adenopathy. Ureters are not dilated. There are clips apparently from appendectomy. Bladder distends smoothly. There is fat-containing right ing uinal hernia. There is smaller left inguinal hernia containing fat. There is no mesenteric edema. There is no ascites or free air. There is no bowel obstruction. There a re multiple sigmoid diverticula. There is some minimal fat stranding around the lower descending colo n and proximal sigmoid colon with tiny amount of fluid in the left paracolic gutter. Bony pelvis is intact. Lumbar spine is intact. There is spondylotic changes throughout the lumbar spi ne and lower thoracic spine. There is no compression fracture. There is small fat-containing umbilical hernia. IMPRESSION: There is minimal fat stranding is seen in the proximal sigmoid colon suggestive of mild focal colitis or diverticulitis. Multiple sigmoid diverticula noted. Nonobstructing left side renal calcification. This could be vascular. Fat-containing bilateral inguinal hernias. Density in the lung bases consistent with interstitial fibrosis. Cardiomegaly.
[2020-03-19] MEDS ORDERED: SODIUM CHLORIDE 0.9% 1,000 ML IV ONE (04:24)
[2020-03-19] MEDS ORDERED: PANTOPRAZOLE 40 MG/10 ML VIAL IVP STA (04:24)
[2020-03-19] MEDS ORDERED: ONDANSETRON 4 MG/2 ML VIAL IVP PRN (04:24)
[2020-03-19] MEDS ORDERED: MORPHINE SULFATE 4 MG/ML SYRINGE IVP PRN (04:24)
[2020-03-19] MEDS: AMPICILLIN-SULBACTAM 3 GM in SODIUM CHLORIDE 0.9% 100 ML IVPB ONE ×2 (05:03→06:18)
--- NOTE | 2020-03-19 05:20 | P.HPIM ---
History of Present Illness H&P Date: 03/19/20 Chief Complaint: Abdominal pain 79 year old male with systolic CHF, compensated, P. Afib, on eliquis, DM , Hypertension controlled with meds patient comes in with 1-2 days history of abd pain , left sided, 8/10 in severity , no specific relieving or aggravating factors. denies any associated diarrhea, nausea , vomiting, fever or chills, denies any urinary changes. he is currently pain free he denies otherwise any URI symptoms, chest pain . he does report exertional dyspnea at baseline. he had some cardiac workup a week ago , including echocardiogram , but he did not receive results yet. inthe ED , workup was suggestive of acute diverticulitis , he was also found to have some CANELO on CKD, admitted for IV antibiotics Review of Systems Pertinent positives as noted in HPI. All other systems were reviewed and are negative Past Medical History Past Medical History: Atrial Fibrillation, Coronary Artery Disease (CAD), Heart Failure, Diabetes Mellitus, Hyperlipidemia, Hypertension, Myocardial Infarction (ID), Osteoarthritis (OA), Thyroid Disorder Additional Past Medical History / Comment(s): SOB since ID, has cold and runny nose, pooir circulation in paulo legs, "enlarged lower bowel"-large bowel movements "all my life", leakage of stool, now loose stools, hx diverticulitis, "little bumps on face", Last Myocardial Infarction Date:: 1997 History of Any Multi-Drug Resistant Organisms: None Reported Past Surgical History: Coronary Bypass/CABG, Heart Catheterization, Heart Catheterization With Stent, Orthopedic Surgery, Tonsillectomy Additional Past Surgical History / Comment(s): CABG-quad 1997, arthroscopy rt knee, paulo cataracts, one cardiac stent Past Anesthesia/Blood Transfusion Reactions: No Reported Reaction Date of Last Stent Placement:: 11/2013 Past Psychological History: Anxiety Smoking Status: Former smoker Past Alcohol Use History: None Reported Past Drug Use History: None Reported - Past Family History Mother Family Medical History: Cancer, CVA/TIA Additional Family Medical History / Comment(s): skin Father Family Medical History: Cancer, CVA/TIA Additional Family Medical History / Comment(s): throat cancer Brother(s) Family Medical History: Cancer Additional Family Medical History / Comment(s): skin Medications and Allergies Home Medications Medication Instructions Recorded Confirmed Type Fenofibrate 160 mg PO HS 07/02/19 11/25/19 History Levothyroxine Sodium [Synthroid] 100 mcg PO DAILY 07/02/19 11/25/19 History Lisinopril [Zestril] 5 mg PO DAILY 07/02/19 11/25/19 History Meloxicam 15 mg PO DAILY PRN 07/02/19 11/23/19 History Pioglitazone HCl 30 mg PO DAILY 07/02/19 11/25/19 History Zolpidem [Ambien] 10 mg PO HS PRN 07/02/19 11/23/19 History glipiZIDE XL [Glucotrol XL] 10 mg PO BID 07/02/19 11/25/19 History metFORMIN HCL [metFORMIN HCL ER 1,000 mg PO BID 07/02/19 11/25/19 History Osmotic] Apixaban [Eliquis] 5 mg PO BID #60 tab 07/06/19 11/23/19 Rx Metoprolol Succinate (ER) [Toprol 100 mg PO DAILY #30 tab.er.24h 07/06/19 11/25/19 Rx XL] Nitroglycerin Sl Tabs [Nitrostat] 0.4 mg SUBLINGUAL Q5M PRN tab 07/06/19 11/23/19 Rx Aspirin EC [Ecotrin Low Dose] 81 mg PO HS 11/23/19 11/25/19 History Atorvastatin [Lipitor] 40 mg PO HS 11/23/19 11/25/19 History Spironolactone 25 mg PO QAM 11/23/19 11/25/19 History Allergies Allergy/AdvReac Type Severity Reaction Status Date / Time No Known Allergies Allergy Verified 03/19/20 01:24 Physical Exam Vitals: Vital Signs Temp Pulse Resp BP Pulse Ox 03/19/20 03:27 97.7 F 101 H 19 115/83 96 03/19/20 01:24 97.3 F L 105 H 18 122/87 99 Intake and Output 03/18/20 03/18/20 03/19/20 14:59 22:59 06:59 Other: Weight 124.738 kg Constitutional: No acute distress, conversant, pleasant Eyes: Anicteric sclerae, moist conjunctiva, Pupils equal round reactive to light ENMT: NC/AT Oropharynx clear, no erythema, or exudates Neck: Supple, FROM, no masses, or JVD No carotid bruits No thyromegaly Lungs: Clear to auscultation Clear to percussion Normal respiratory effort, no accessory muscle use Cardiovascular: Heart regular in rate and rhythm, No murmurs, gallops, or rubs No peripheral edema Abdominal: Soft tenderness and discomfort to deep abdominal palpation mainly on the left side, with voluntary guarding, no rebound or rigidity Abdomen moving with respiration Normoactive bowel sounds No hepatomegaly, No splenomegaly No palpable mass No abdominal wall hernia noted Skin: Normal temperature, tone, texture, turgor No induration No subcutaneous nodules No rash, lesions No ulcers Extremities: No digital cyanosis No clubbing Pedal pulses intact and symmetrical Radial pulses intact and symmetrical No calf tenderness Psychiatric: Alert and oriented to person, place and time Appropriate affect fair judgement Neuro Muscles Strength 5/5 in all 4 extremities Sensation to light touch grossly present throughout Cranial nerves II-XII grossly intact No focal sensory deficits Lymphatics: no palpable cervical or supraclavicular , or inguinal lymph nodes Results CBC & Chem 7: 03/19/20 01:49 03/19/20 01:49 Labs: Abnormal Lab Results - Last 24 Hours (Table) 03/19/20 03/19/20 03/19/20 Range/Units 01:49 01:49 01:49 RBC 3.85 L (4.30-5.90) m/uL Hgb 12.7 L (13.0-17.5) gm/dL MCV 104.4 H (80.0-100.0) fL Potassium 5.7 H (3.5-5.1) mmol/L Chloride 108 H (98-107) mmol/L Carbon Dioxide 21 L (22-30) mmol/L BUN 74 H (9-20) mg/dL Creatinine 2.36 H (0.66-1.25) mg/dL Glucose 105 H (74-99) mg/dL Phosphorus 4.8 H (2.5-4.5) mg/dL Troponin I 0.061 H* (0.000-0.034) ng/mL Assessment and Plan Assessment: 79 year old male with afib, CAD, CHF, DM , HTN, hypothyroid comes in with left sided abd pain suspected to have acute diverticulitis CANELO on CKD anticipated length of stay > 2 midnights Acute diverticulitis Pain control Gentle IV fluid hydration Antibiotics with Zosyn GI consultation Tylenol for fever Nothing by mouth Acute kidney injury and CK D Avoid nephrotoxic meds Gentle IV fluid hydration Monitor renal function Monitor urine output Chronic conditions Paroxysmal A. fib, on Eliquis Systolic CHF chronic with left ventricular ejection fraction of 2030 percent Hyperlipidemia Diabetes mellitus, insulin sliding scale Hypertension Resume home meds CODE STATUS: Full code DVT prophylaxis: On Eliquis for A. fib Discussed with: Patient, ER, RN Anticipated length of stay more than [address]: Home A total of 75 minutes was spent on the care of this complex patient more than 50% of the time was spent in counseling and care coordination.
[2020-03-19] MEDS ORDERED: PIPERACILLIN-TAZOBACTAM 3.375 GM in SODIUM CHLORIDE 0.9% 100 ML IVPB ONE (05:30)
[2020-03-19 07:07] LABS: Glucose,Whole Blood 81 mg/dL (75-99)
[2020-03-19] MEDS ORDERED: PIPERACILLIN-TAZOBACTAM 3.375 GM in SODIUM CHLORIDE 0.9% 100 ML IVPB SCH (08:00)
[2020-03-19] MEDS ORDERED: AMPICILLIN-SULBACTAM 3 GM in SODIUM CHLORIDE 0.9% 100 ML IVPB SCH (08:00)
[2020-03-19] MEDS: INSULIN ASPART (NovoLOG) 100 UNIT/ML VIAL SQ SCH ×4 (08:55→21:49)
[2020-03-19] MEDS: PANTOPRAZOLE 40 MG/10 ML VIAL IVP SCH (08:58)
[2020-03-19] MEDS: LEVOTHYROXINE 100 MCG TAB PO SCH (08:59)
[2020-03-19] MEDS: METOPROLOL SUCCINATE (ER) 100 MG TAB.ER.24H PO SCH (08:59)
[2020-03-19] MEDS: APIXABAN 5 MG TAB PO SCH ×2 (09:41→21:28)
[2020-03-19 11:18] LABS: Glucose,Whole Blood 85 mg/dL (75-99)
[2020-03-19] MEDS: PIPERACILLIN-TAZOBACTAM 3.375 GM in SODIUM CHLORIDE 0.9% 100 ML IVPB SCH ×2 (14:10→21:52)
[2020-03-19 17:25] LABS: Glucose,Whole Blood 70 mg/dL (75-99)
[2020-03-19] MEDS: ATORVASTATIN 40 MG TAB PO SCH (21:28)
[2020-03-19] MEDS: ASPIRIN 81 MG PO SCH (21:28)
[2020-03-19 21:58] LABS: Glucose,Whole Blood 70 mg/dL (75-99)
[2020-03-19 22:37] LABS: Glucose,Whole Blood 113 mg/dL (75-99)
[2020-03-20] MEDS: ZOLPIDEM 10 MG TAB PO PRN ×2 (00:52→22:17)
[2020-03-20 02:11] LABS: Glucose,Whole Blood 77 mg/dL (75-99)
[2020-03-20 05:08] LABS: Glucose,Whole Blood 80 mg/dL (75-99)
[2020-03-20] MEDS: PIPERACILLIN-TAZOBACTAM 3.375 GM in SODIUM CHLORIDE 0.9% 100 ML IVPB SCH ×3 (06:17→22:18)
[2020-03-20] MEDS: LEVOTHYROXINE 100 MCG TAB PO SCH (06:17)
[2020-03-20 07:19] LABS: Glucose,Whole Blood 88 mg/dL (75-99)
[2020-03-20 07:24] LABS: Basophils % (A) 0 %; Eosinophils # (A) 0.2 k/uL (0-0.7); Eosinophils % (A) 3 %; HGB 11.4 gm/dL (13.0-17.5); Lymphocytes # (A) 0.7 k/uL (1.0-4.8); Lymphocytes % (A) 12 %; MCHC 31.6 g/dL (31.0-37.0); MCV 104.5 fL (80.0-100.0); Macrocytosis Slight; Mean Platelet Volume 7.7; Monocytes # (A) 0.6 k/uL (0-1.0); Monocytes % (A) 11 %; Neutrophils # (A) 4.2 k/uL (1.3-7.7); Neutrophils % (A) 72 %; Platelet Count 154 k/uL (150-450); RBC 3.44 m/uL (4.30-5.90); RDW 13.5 % (11.5-15.5); WBC 5.9 k/uL (3.8-10.6)
[2020-03-20 07:46] LABS: Albumin 3.5 g/dL (3.5-5.0); Calcium 9.3 mg/dL (8.4-10.2); Total Bilirubin 0.9 mg/dL (0.2-1.3); Total Protein 6.3 g/dL (6.3-8.2)
[2020-03-20] MEDS: INSULIN ASPART (NovoLOG) 100 UNIT/ML VIAL SQ SCH ×4 (07:47→21:34)
[2020-03-20] MEDS: PANTOPRAZOLE 40 MG/10 ML VIAL IVP SCH (09:03)
[2020-03-20] MEDS: METOPROLOL SUCCINATE (ER) 100 MG TAB.ER.24H PO SCH (09:03)
[2020-03-20] MEDS: APIXABAN 5 MG TAB PO SCH ×2 (09:03→21:33)
[2020-03-20] MEDS ORDERED: ACETAMINOPHEN TAB 325 MG TAB PO PRN (09:56)
[2020-03-20 12:36] LABS: Glucose,Whole Blood 92 mg/dL (75-99)
[2020-03-20 13:19] VITALS: RESP 18
[2020-03-20 17:27] LABS: Glucose,Whole Blood 112 mg/dL (75-99)
--- NOTE | 2020-03-20 17:32 | P.PN ---
Subjective Progress Note Date: 03/20/20 Principal diagnosis: abdominal pain Patient is 79 yo male with A fib, chronic systolic CHF EF 20-30%, diabetes mellitus, dyslipidemia, hypertension, and multiple other comorbid conditions who presented to the emergency department secondary to abdominal pain. In the ER he underwent an extensive evaluation. On arrival he was slightly tachycardic with a heart rate of 105. Initial laboratory analysis showed a hemoglobin of 12.7. Potassium was mildly elevated at 5.7, creatinine elevated at 2.36 with a BUN a 74. Phosphorus is also mildly elevated at 4.8. Troponin was mildly elevated at 0.61. He underwent a CT abdomen and pelvis which showed minimal fat stranding in the sigmoid colon suggestive of focal colitis/diverticulitis, nonobstructing left renal calcification, and fat- containing bilateral inguinal hernias. He was diagnosed with diverticulitis and acute renal failure. He was started on IV fluids and antibiotics. He was admitted for further monitoring. Patient seen and examined at bedside. He has had a remarkable improvement in his pain. He denies any nausea or vomiting. He has not had a bowel movement since admission. He is feeling very hungry and asking to eat potato and steaks. He reports that his lower extremity edema is chronic, he has had no change in his shortness of breath and feels well otherwise. Objective - Vital Signs Vital signs: Vital Signs Temp 98.6 F 03/20/20 04:50 Pulse 109 H 03/20/20 04:50 Resp 16 03/20/20 04:50 BP 107/65 03/20/20 04:50 Pulse Ox 97 03/20/20 04:50 Intake & Output 03/19/20 03/20/20 03/20/20 18:59 06:59 18:59 Intake Total 100 600 Balance 100 600 Weight 126 kg Intake: Intake, IV Titration 100 600 Amount Piperacillin-Tazobactam 3 100 200 .375 gm In Sodium Chloride 0.9% 100 ml @ 25 mls/hr IVPB Q8H [facility] Rx#: [id number] Sodium Chloride 0.9% 1, 400 000 ml @ 100 mls/hr IV . Q10H [facility] Rx#:[id number] Other: Voiding Method Toilet Toilet # Voids 1 2 # Bowel Movements 2 - Exam General: non toxic, no distress, appears at stated age Derm: warm, dry Head: atraumatic, normocephalic, symmetric Eyes: EOMI, no lid lag, anicteric sclera Mouth: no lip lesion, mucus membranes moist Cardiovascular: S1S2 reg, no murmur, positive posterior tibial pulse bilateral, Lungs: CTA bilateral, no rhonchi, no rales , no accessory muscle use Abdominal: soft, tenderness to palpation left lower quadrant, no guarding, no appreciable organomegaly Ext: no gross muscle atrophy, 1+ edema bilateral lower extremities, no contractures Neuro: CN II-XI grossly intact, no focal neuro deficits Psych: Alert, oriented, appropriate affect - Labs CBC & Chem 7: 03/20/20 06:47 03/20/20 06:47 Labs: Abnormal Lab Results - Last 24 Hours (Table) 03/19/20 03/19/20 03/19/20 Range/Units 09:26 17:15 21:39 RBC (4.30-5.90) m/uL Hgb (13.0-17.5) gm/dL Hct (39.0-53.0) % MCV (80.0-100.0) fL Lymphocytes # (1.0-4.8) k/uL Chloride (98-107) mmol/L Carbon Dioxide (22-30) mmol/L BUN (9-20) mg/dL Creatinine (0.66-1.25) mg/dL POC Glucose (mg/dL) 70 L 70 L (75-99) mg/dL Alkaline Phosphatase (38-126) U/L Troponin I 0.059 H* (0.000-0.034) ng/mL 03/19/20 03/20/20 03/20/20 Range/Units 22:35 06:47 06:47 RBC 3.44 L (4.30-5.90) m/uL Hgb 11.4 L (13.0-17.5) gm/dL Hct 36.0 L (39.0-53.0) % MCV 104.5 H (80.0-100.0) fL Lymphocytes # 0.7 L (1.0-4.8) k/uL Chloride 111 H (98-107) mmol/L Carbon Dioxide 20 L (22-30) mmol/L BUN 38 H (9-20) mg/dL Creatinine 1.73 H (0.66-1.25) mg/dL POC Glucose (mg/dL) 113 H (75-99) mg/dL Alkaline Phosphatase 31 L (38-126) U/L Troponin I (0.000-0.034) ng/mL Assessment and Plan Assessment: Acute diverticulitis -IV fluid resuscitation completed -Continue with Zosyn -Advance to clear liquid diet, will advance again this evening if tolerates well to low residual -Pain control -Antiemetics Acute kidney injury on chronic kidney disease stage III with baseline creatinine 1.6 -Improved -Hold Lasix, spironolactone, and lisinopril -On discharge he will likely need a smaller dose of Aldactone secondary to his hyperkalemia -Repeat blood work in 3 days -Hold metformin and Glucotrol Normocytic anemia -Check ferritin and iron studies -Follow CBC Elevated troponin -Reflective of his acute kidney injury and not Coronary artery disease -Flat on recheck -No need to continue to follow Chronic systolic congestive heart failure with ejection fraction 25-30% -Dehydrated on blood work on admission -VARUN inhibitor on hold secondary to a canine -Lasix and Aldactone on hold secondary to HPI -Continue metoprolol -Follow fluid status closely Diabetes mellitus type 2 -Stop metformin, Glucotrol, and peak what his own -Sliding-scale insulin -Follow blood sugars -Last hemoglobin A1c 5.9 Chronic: Hypothyroidism Dyslipidemia Osteoarthritis DVT prophylaxis: kari Discussed with: patient, nursing Anticipated discharge: in AM Anticipated discharge place: home A total of 35 minutes was spent on the care of this complex patient more than 50% of the time was spent in counseling and care coordination.
[2020-03-20 21:02] LABS: Glucose,Whole Blood 133 mg/dL (75-99)
[2020-03-20] MEDS: ASPIRIN 81 MG PO SCH (21:33)
[2020-03-20] MEDS: ATORVASTATIN 40 MG TAB PO SCH (21:33)
[2020-03-21 01:45] LABS: Glucose,Whole Blood 94 mg/dL (75-99)
[2020-03-21] MEDS: LEVOTHYROXINE 100 MCG TAB PO SCH (05:52)
[2020-03-21] MEDS: PIPERACILLIN-TAZOBACTAM 3.375 GM in SODIUM CHLORIDE 0.9% 100 ML IVPB SCH (05:52)
[2020-03-21 06:00] VITALS: BP 91/61; PULSE 114; TEMP 98.5
[2020-03-21 07:20] LABS: Glucose,Whole Blood 101 mg/dL (75-99)
[2020-03-21 08:11] LABS: Calcium 9.3 mg/dL (8.4-10.2)
[2020-03-21 08:17] LABS: HCT 37.1 % (39.0-53.0); MCH 34.4 pg (25.0-35.0); MCHC 32.3 g/dL (31.0-37.0); MCV 106.3 fL (80.0-100.0); Macrocytosis Moderate; Mean Platelet Volume 7.3; Platelet Count 168 k/uL (150-450); RBC 3.49 m/uL (4.30-5.90); RDW 13.4 % (11.5-15.5); WBC 4.6 k/uL (3.8-10.6)
[2020-03-21] MEDS: INSULIN ASPART (NovoLOG) 100 UNIT/ML VIAL SQ SCH ×2 (08:51→12:57)
[2020-03-21] MEDS: APIXABAN 5 MG TAB PO SCH (08:52)
[2020-03-21] MEDS: PANTOPRAZOLE 40 MG/10 ML VIAL IVP SCH (08:52)
[2020-03-21] MEDS: METOPROLOL SUCCINATE (ER) 100 MG TAB.ER.24H PO SCH (08:52)
[2020-03-21 11:01] LABS: Glucose,Whole Blood 191 mg/dL (75-99)
--- NOTE | 2020-03-21 11:17 | P.DS ---
Providers Date of admission: 03/19/20 04:25 Expected date of discharge: 03/21/20 Attending physician: Christ Umana MD Primary care physician: Kristian Fisher Hospital Course: Discharge Diagnosis: Acute non-complicated diverticulitis Acute kidney injury and chronic kidney disease stage III Hyperkalemia Normocytic anemia Elevated troponin reflective of his CANELO not acute coronary syndrome Chronic systolic congestive heart failure with ejection fraction 25-30% Diabetes mellitus type 2 Hypothyroidism Dyslipidemia Osteoarthritis Hospital Course: Patient is 79 yo male with A fib, chronic systolic CHF EF 25-30%, diabetes mellitus, dyslipidemia, hypertension, and multiple other comorbid conditions who presented to the emergency department secondary to abdominal pain. In the ER he underwent an extensive evaluation. On arrival he was slightly tachycardic with a heart rate of 105. Initial laboratory analysis showed a hemoglobin of 12.7. Potassium was mildly elevated at 5.7, creatinine elevated at 2.36 with a BUN a 74. Phosphorus is also mildly elevated at 4.8. Troponin was mildly elevated at 0.61. He underwent a CT abdomen and pelvis which showed minimal fat stranding in the sigmoid colon suggestive of focal colitis/diverticulitis, nonobstructing left renal calcification, and fat- containing bilateral inguinal hernias. He was diagnosed with diverticulitis and acute renal failure. He was started on IV fluids and antibiotics. He was admitted for further monitoring. His kidney function and potassium improved. His IV fluids were stopped, but his diuretics remain held. His abdominal pain resolved and was able to tolerate a diet. He was determined stable for discharge home. He states that he has had problems with low potassium in the past but not high potassium. He follows with Aleah Jimenez on a regular basis. He will resume his home Lasix, lisinopril, and Aldactone. He will have a repeat basic metabolic profile drawn on 03/24/2020 with results to Aleah Jimenez. He will complete 4 more days of cephalosporin and Flagyl. He'll follow-up with Aleah in 2-3 days. Patient seen and examined at bedside. Denies chest pain, shortness breath, nausea, vomiting, or diarrhea. All abdominal pain is resolved. He is feeling well and wants to go home. Vital signs reviewed and stable. General: non toxic, no distress, appears at stated age Derm: warm, dry Head: atraumatic, normocephalic, symmetric Eyes: EOMI, no lid lag, anicteric sclera Mouth: no lip lesion, mucus membranes moist Cardiovascular: S1S2 reg, no murmur, positive posterior tibial pulse bilateral, Lungs: Decreased breath sounds bilateral, no rhonchi, no rales , no accessory muscle use Abdominal: soft, nontender to palpation, no guarding, no appreciable organomegaly Ext: no gross muscle atrophy, 2+ edema bilateral lower extremity, no contractures Neuro: CN II-XI grossly intact, no focal neuro deficits Psych: Alert, oriented, appropriate affect A total of 35 minutes of time were spent preparing this complex discharge summary . Patient Condition at Discharge: Good Plan - Discharge Summary Discharge Rx Participant: Yes New Discharge Prescriptions: New metroNIDAZOLE [Flagyl] 500 mg PO BID #9 tab Pantoprazole [Protonix] 40 mg PO DAILY #30 tablet. Cefpodoxime Proxetil [Vantin] 200 mg PO Q12HR #9 tab Continue Zolpidem [Ambien] 10 mg PO HS PRN PRN Reason: Insomnia metFORMIN HCL [metFORMIN HCL ER Osmotic] 1,000 mg PO BID glipiZIDE XL [Glucotrol XL] 10 mg PO BID Lisinopril [Zestril] 5 mg PO DAILY Fenofibrate 160 mg PO HS Pioglitazone HCl 30 mg PO DAILY Levothyroxine Sodium [Synthroid] 100 mcg PO DAILY Apixaban [Eliquis] 5 mg PO BID #60 tab Nitroglycerin Sl Tabs [Nitrostat] 0.4 mg SUBLINGUAL Q5M PRN tab PRN Reason: Chest Pain Metoprolol Succinate (ER) [Toprol XL] 100 mg PO DAILY #30 tab.er.24h Aspirin EC [Ecotrin Low Dose] 81 mg PO HS Atorvastatin [Lipitor] 40 mg PO HS Spironolactone 25 mg PO QAM Furosemide [Lasix] 40 mg PO DAILY Discontinued Meloxicam 15 mg PO DAILY PRN PRN Reason: Pain Discharge Medication List Fenofibrate 160 mg PO HS 07/02/19 [History] Levothyroxine Sodium [Synthroid] 100 mcg PO DAILY 07/02/19 [History] Lisinopril [Zestril] 5 mg PO DAILY 07/02/19 [History] Pioglitazone HCl 30 mg PO DAILY 07/02/19 [History] Zolpidem [Ambien] 10 mg PO HS PRN 07/02/19 [History] glipiZIDE XL [Glucotrol XL] 10 mg PO BID 07/02/19 [History] metFORMIN HCL [metFORMIN HCL ER Osmotic] 1,000 mg PO BID 07/02/19 [History] Apixaban [Eliquis] 5 mg PO BID #60 tab 07/06/19 [Rx] Metoprolol Succinate (ER) [Toprol XL] 100 mg PO DAILY #30 tab.er.24h 07/06/19 [Rx] Nitroglycerin Sl Tabs [Nitrostat] 0.4 mg SUBLINGUAL Q5M PRN tab 07/06/19 [Rx] Aspirin EC [Ecotrin Low Dose] 81 mg PO HS 11/23/19 [History] Atorvastatin [Lipitor] 40 mg PO HS 11/23/19 [History] Spironolactone 25 mg PO QAM 11/23/19 [History] Furosemide [Lasix] 40 mg PO DAILY 03/19/20 [History] Cefpodoxime Proxetil [Vantin] 200 mg PO Q12HR #9 tab 03/21/20 [Rx] Pantoprazole [Protonix] 40 mg PO DAILY #30 tablet. 03/21/20 [Rx] metroNIDAZOLE [Flagyl] 500 mg PO BID #9 tab 03/21/20 [Rx] Follow up Appointment(s)/Referral(s): Aleah Jimenez [facility] [REFERRING] - 1-2 Days Ambulatory/Diagnostic Orders: Basic Metabolic Panel [LAB.AMB] Time Frame: 3 Days, Location: None Selected Activity/Diet/Wound Care/Special Instructions: Activity: as tolerated Diet: heart healthy, low sodium, carb consistent Special Instructions: blood work friday03/24/20 Discharge Disposition: HOME SELF-CARE
[2020-03-21 18:02] LABS: % Iron Saturation 16.94 (15.00-50.00)
[2020-03-21 18:28] LABS: Ferritin 530.9 ng/mL (22.0-322.0)
== END 2020-03-21 14:11 | disposition home or self-care (01) | DRG 392 ==
LOC: EC 01:16 → 5NMEDONC 04:25
PROVIDERS: ADMIT Internal Medicine; ATTEND Internal Medicine
DX: K57.92 Diverticulitis of intestine, part unspecified, without perforation or abscess without bleeding (principal); N17.9 Acute kidney failure, unspecified; I50.22 Chronic systolic (congestive) heart failure; I13.0 Hypertensive heart and chronic kidney disease with heart failure and stage 1 through stage 4 chronic kidney disease, or unspecified chronic kidney disease; I25.10 Atherosclerotic heart disease of native coronary artery without angina pectoris; F41.9 Anxiety disorder, unspecified; E87.5 Hyperkalemia; E03.9 Hypothyroidism, unspecified; E11.22 Type 2 diabetes mellitus with diabetic chronic kidney disease; E78.5 Hyperlipidemia, unspecified; K40.20 Bilateral inguinal hernia, without obstruction or gangrene, not specified as recurrent; M19.90 Unspecified osteoarthritis, unspecified site; D64.9 Anemia, unspecified; E86.0 Dehydration; I48.0 Paroxysmal atrial fibrillation; N18.3 Chronic kidney disease, stage 3 (moderate); Z79.1 Long term (current) use of non-steroidal anti-inflammatories (NSAID); Z11.59 Encounter for screening for other viral diseases; Z79.84 Long term (current) use of oral hypoglycemic drugs; Z79.01 Long term (current) use of anticoagulants; Z79.890 Hormone replacement therapy; Z79.899 Other long term (current) drug therapy; I25.2 Old myocardial infarction; Z95.1 Presence of aortocoronary bypass graft; Z95.5 Presence of coronary angioplasty implant and graft; Z90.89 Acquired absence of other organs; Z98.890 Other specified postprocedural states; Z80.8 Family history of malignant neoplasm of other organs or systems; Z82.3 Family history of stroke; Z87.891 Personal history of nicotine dependence
CPT/HCPCS: 36415; 74176; 80048; 80053; 82150; 82728; 83540; 83550; 83605; 83690; 83735; 84100; 84484; 85025; 85027; 96361; 96374; 99285

== ENCOUNTER → 2020-06-09 | Outpatient (CLI) | payer MEDICARE ==
--- NOTE | 2020-06-09 12:33 | MR ---
EXAMINATION TYPE: MR knee LT wo con DATE OF EXAM: 06/09/2020 COMPARISON: X-ray 05/31/2020 HISTORY: Pain TECHNIQUE: Multiplanar, multisequence imaging of the left knee is performed without IV contrast. FINDINGS: There is a large popliteal fossa cyst measuring 5.6 cm. There is narrowing the medial compartment, lateral compartment and patellofemoral joint of the knee. There is grade III chondromalacia involving the medial femoral articular cartilage and grade II chond romalacia involving the lateral femoral articular cartilage. Grade III chondromalacia of the lateral patellar facet. Small amount of fluid in the suprapatellar bursa. Patellar and quadriceps tendons intact. Anterior cruciate and posterior cruciate ligaments are intact. Medial collateral and lateral collater al ligaments are also intact subcutaneous edema noted. There is a complex tear involving the posterior horn and body of the medial meniscus with extension i nto the anterior horn. Linear tear involving the posterior horn of the lateral meniscus noted. IMPRESSION: 1. Osteoarthritis with chondromalacia involving tricompartment spaces as described above. 2. Large popliteal fossa cyst measuring 5.6 cm. There are 3 complex tear posterior horn medial menisc us extending into the body and anterior horn. 3. Linear tear posterior horn lateral meniscus
== END | disposition home or self-care (01) ==
LOC: RADMRIMAIN 10:55
PROVIDERS: ATTEND Orthopaedic Surgery
DX: M17.12 Unilateral primary osteoarthritis, left knee (principal); S83.242A Other tear of medial meniscus, current injury, left knee, initial encounter; S83.282A Other tear of lateral meniscus, current injury, left knee, initial encounter; M94.261 Chondromalacia, right knee; M71.21 Synovial cyst of popliteal space [Baker], right knee

== ENCOUNTER 2021-01-14 11:39 | Emergency (ER) | payer MEDICARE ==
[2021-01-14 11:55] VITALS: RESP 18
[2021-01-14] MEDS ORDERED: SODIUM CHLORIDE 0.9% 1,000 ML IV STA ×2 (13:03→13:28)
[2021-01-14] MEDS ORDERED: FAMOTIDINE 20 MG/2 ML VIAL IV STA (13:04)
--- NOTE | 2021-01-14 13:08 | ED ---
General Adult HPI - General Chief complaint: Abdominal Pain Stated complaint: ABD PAIN Time Seen by Provider: 01/14/21 12:40 Source: patient, family, RN notes reviewed Mode of arrival: wheelchair Limitations: no limitations - History of Present Illness Initial comments: Patient is a pleasant 80-year-old male presenting to the emergency Department with complaints of abdominal discomfort. Onset of symptoms was over a week ago. Patient has not had a normal bowel movement since that time. Patient has had some small amount. Patient did go to another facility and had x-rays and blood work done and an enema that did not help with symptoms. Patient denies nausea vomiting. No fever. Abdominal discomfort is diffuse and feels like fullness or cramping. - Related Data Home Medications Medication Instructions Recorded Confirmed Fenofibrate 160 mg PO HS 07/02/19 03/19/20 Levothyroxine Sodium [Synthroid] 100 mcg PO DAILY 07/02/19 03/19/20 Pioglitazone HCl 30 mg PO DAILY 07/02/19 03/19/20 Zolpidem [Ambien] 10 mg PO HS PRN 07/02/19 03/19/20 glipiZIDE XL [Glucotrol XL] 10 mg PO BID 07/02/19 03/19/20 lisinopriL [Zestril] 5 mg PO DAILY 07/02/19 03/19/20 metFORMIN HCL [metFORMIN HCL ER 1,000 mg PO BID 07/02/19 03/19/20 Osmotic] Aspirin EC [Ecotrin Low Dose] 81 mg PO HS 11/23/19 03/19/20 Atorvastatin [Lipitor] 40 mg PO HS 11/23/19 03/19/20 Spironolactone 25 mg PO QAM 11/23/19 03/19/20 Furosemide [Lasix] 40 mg PO DAILY 03/19/20 03/19/20 Previous Rx's Medication Instructions Recorded Apixaban [Eliquis] 5 mg PO BID #60 tab 07/06/19 Metoprolol Succinate (ER) [Toprol 100 mg PO DAILY #30 tab.er.24h 07/06/19 XL] Nitroglycerin Sl Tabs [Nitrostat] 0.4 mg SUBLINGUAL Q5M PRN tab 07/06/19 Cefpodoxime Proxetil [Vantin] 200 mg PO Q12HR #9 tab 03/21/20 Pantoprazole [Protonix] 40 mg PO DAILY #30 tablet. 03/21/20 metroNIDAZOLE [Flagyl] 500 mg PO BID #9 tab 03/21/20 Allergies Allergy/AdvReac Type Severity Reaction Status Date / Time No Known Allergies Allergy Verified 01/14/21 14:57 Review of Systems ROS Statement: Those systems with pertinent positive or pertinent negative responses have been documented in the HPI. ROS Other: All systems not noted in ROS Statement are negative. Constitutional: Denies: fever Eyes: Denies: eye pain ENT: Denies: ear pain Respiratory: Denies: cough Cardiovascular: Denies: chest pain Endocrine: Denies: fatigue Gastrointestinal: Reports: abdominal pain, constipation. Denies: nausea, vomiting Genitourinary: Denies: dysuria Musculoskeletal: Denies: back pain Skin: Denies: rash Neurological: Denies: weakness Past Medical History Past Medical History: Atrial Fibrillation, Coronary Artery Disease (CAD), Heart Failure, Diabetes Mellitus, Hyperlipidemia, Hypertension, Myocardial Infarction (MS), Osteoarthritis (OA), Thyroid Disorder Additional Past Medical History / Comment(s): SOB since MS, has cold and runny nose, pooir circulation in paulo legs, "enlarged lower bowel"-large bowel movements "all my life", leakage of stool, now loose stools, hx diverticulitis, "little bumps on face", recent echo as of 03/08/20 Last Myocardial Infarction Date:: 1997 History of Any Multi-Drug Resistant Organisms: None Reported Past Surgical History: Coronary Bypass/CABG, Heart Catheterization, Heart Catheterization With Stent, Orthopedic Surgery, Tonsillectomy Additional Past Surgical History / Comment(s): CABG-quad 1997, arthroscopy rt knee, paulo cataracts, one cardiac stent Past Anesthesia/Blood Transfusion Reactions: No Reported Reaction Date of Last Stent Placement:: 11/2013 Past Psychological History: Anxiety Past Alcohol Use History: None Reported Past Drug Use History: None Reported - Past Family History Mother Family Medical History: Cancer, CVA/TIA Additional Family Medical History / Comment(s): skin Father Family Medical History: Cancer, CVA/TIA Additional Family Medical History / Comment(s): throat cancer Brother(s) Family Medical History: Cancer Additional Family Medical History / Comment(s): skin General Exam Limitations: no limitations General appearance: alert, in no apparent distress Head exam: Present: normocephalic Eye exam: Present: normal appearance Neck exam: Present: normal inspection Respiratory exam: Present: normal lung sounds bilaterally Cardiovascular Exam: Present: regular rate, normal rhythm Expanded Peripheral pulses: 2+: Dorsalis Pedis (R), Dorsalis Pedis (L) GI/Abdominal exam: Present: soft, tenderness (Mild diffuse tenderness), normal bowel sounds. Absent: distended, guarding, rebound, rigid, pulsatile mass Extremities exam: Present: normal inspection Neurological exam: Present: alert Psychiatric exam: Present: normal affect, normal mood Skin exam: Present: normal color Course Vital Signs 01/14/21 11:49 Temperature 98.2 F Pulse Rate 114 H Respiratory 18 Rate Blood Pressure 134/91 O2 Sat by Pulse 95 Oximetry Medical Decision Making - Medical Decision Making Patient reevaluated and updated. Patient will be provided lactulose and Therevac. If unsuccessful twice is unremarkable be tried prior to discharge - Lab Data Result diagrams: 01/14/21 12:58 01/14/21 12:58 Lab Results 01/14/21 01/14/21 01/14/21 Range/Units 12:58 12:58 13:23 WBC 8.0 (3.8-10.6) k/uL RBC 4.47 (4.30-5.90) m/uL Hgb 15.4 (13.0-17.5) gm/dL Hct 44.6 (39.0-53.0) % MCV 99.9 (80.0-100.0) fL MCH 34.5 (25.0-35.0) pg MCHC 34.5 (31.0-37.0) g/dL RDW 12.3 (11.5-15.5) % Plt Count 160 (150-450) k/uL MPV 7.5 Neutrophils % 81 % Lymphocytes % 11 % Monocytes % 6 % Eosinophils % 2 % Basophils % 0 % Neutrophils # 6.4 (1.3-7.7) k/uL Lymphocytes # 0.9 L (1.0-4.8) k/uL Monocytes # 0.4 (0-1.0) k/uL Eosinophils # 0.1 (0-0.7) k/uL Basophils # 0.0 (0-0.2) k/uL Sodium 132 L (137-145) mmol/L Potassium 5.0 (3.5-5.1) mmol/L Chloride 102 (98-107) mmol/L Carbon Dioxide 21 L (22-30) mmol/L Anion Gap 9 mmol/L BUN 30 H (9-20) mg/dL Creatinine 1.52 H (0.66-1.25) mg/dL Est GFR (CKD-EPI)AfAm 50 (>60 ml/min/1.73 sqM) Est GFR (CKD-EPI)NonAf 44 (>60 ml/min/1.73 sqM) Glucose 414 H (74-99) mg/dL Calcium 9.4 (8.4-10.2) mg/dL Total Bilirubin 0.9 (0.2-1.3) mg/dL AST 26 (17-59) U/L ALT 17 (4-49) U/L Alkaline Phosphatase 68 (38-126) U/L Total Protein 6.7 (6.3-8.2) g/dL Albumin 4.0 (3.5-5.0) g/dL Amylase 45 (30-110) U/L Lipase 63 (23-300) U/L Urine Color Yellow Urine Appearance Clear (Clear) Urine pH 5.0 (5.0-8.0) Ur Specific [place] 1.028 (1.001-1.035) Urine Protein Negative (Negative) Urine Glucose (UA) 4+ H (Negative) Urine Ketones Negative (Negative) Urine Blood Negative (Negative) Urine Nitrite Negative (Negative) Urine Bilirubin Negative (Negative) Urine Urobilinogen <2.0 (<2.0) mg/dL Ur Leukocyte Esterase Negative (Negative) - Radiology Data Radiology results: report reviewed (Computed tomography scan of abdomen and pelvis reveals no acute process) Disposition Clinical Impression: Abdominal pain, Constipation Disposition: HOME SELF-CARE Condition: Stable Instructions (If sedation given, give patient instructions): Abdominal Pain (ED), Constipation (ED), High Fiber Diet (ED) Additional Instructions: Please do follow-up with primary care physician in the next day or 2 for recheck. Return for abdominal pain, fever, vomiting, worsening symptoms or other concerns. Is patient prescribed a controlled substance at d/c from ED?: No Referrals: Aleah Jimenez NPC [Primary Care Provider] - 1-2 days Time of Disposition: 15:01
[2021-01-14 13:09] LABS: Basophils % (A) 0 %; Eosinophils # (A) 0.1 k/uL (0-0.7); Eosinophils % (A) 2 %; HCT 44.6 % (39.0-53.0); HGB 15.4 gm/dL (13.0-17.5); Lymphocytes # (A) 0.9 k/uL (1.0-4.8); Lymphocytes % (A) 11 %; MCH 34.5 pg (25.0-35.0); MCHC 34.5 g/dL (31.0-37.0); MCV 99.9 fL (80.0-100.0); Mean Platelet Volume 7.5; Monocytes # (A) 0.4 k/uL (0-1.0); Monocytes % (A) 6 %; Neutrophils # (A) 6.4 k/uL (1.3-7.7); Neutrophils % (A) 81 %; Platelet Count 160 k/uL (150-450); RBC 4.47 m/uL (4.30-5.90); RDW 12.3 % (11.5-15.5)
[2021-01-14 13:18] LABS: Calcium 9.4 mg/dL (8.4-10.2); Total Bilirubin 0.9 mg/dL (0.2-1.3); Total Protein 6.7 g/dL (6.3-8.2)
[2021-01-14 13:42] LABS: Appearance,Urine Clear (Clear); Bilirubin,Urine Negative (Negative); Blood,Urine Negative (Negative); Color,Urine Yellow; Glucose,Urine (UA) 4+ (Negative); Ketones,Urine Negative (Negative); Leukocyte Esterase,Urine Negative (Negative); Nitrite,Urine Negative (Negative); Protein,Urine Negative (Negative); Specific Gravity,Urine 1.028 (1.001-1.035); Urobilinogen,Urine <2.0 mg/dL (<2.0)
--- NOTE | 2021-01-14 14:11 | CT ---
EXAMINATION TYPE: CT abdomen pelvis w con DATE OF EXAM: 01/14/2021 COMPARISON: None HISTORY: Patient having abdominal pain for 3-4 days. Trouble with bowel movements. CT DLP: 2647.1 mGycm Automated exposure control for dose reduction was used. TECHNIQUE: Helical acquisition of images was performed from the lung bases through the pelvis. CONTRAST: Performed without Oral Contrast and with IV Contrast, patient injected with 80 mL of Isovue 300. FINDINGS: There is mild atelectasis in the right lung base otherwise the lung bases are clear. The gallbladder is normal and there is no gallstone, gallbladder wall thickening, pericholecystic flu id or gallbladder distention. There is no biliary ductal dilatation. No organomegaly involving the liver pancreas spleen or adrenal glands. The kidneys are atrophic bilaterally but there is no hydronephrosis. There are 2 nonobstructing calci fications in the left kidney largest measuring 9 mm and the smaller measuring 7 mm. There is a 5.3 cm cyst lower pole the right kidney is a smaller simple cortical cyst of the upper pole the right kidne y. There is no retroperitoneal adenopathy or hemorrhage in the caliber of the abdominal aorta is norm al. The bowel loops are normal without dilatation, inflammation or obstruction. There is no free intraperitoneal air or fluid. There is no pelvic adenopathy, abscess or inflammation. The osseous structures are grossly intact. IMPRESSION: 1. No evidence of acute changes within the abdomen. 2. 2 nonobstructing left renal calcifications 3. No abdominal abscess, inflammation, free fluid, free air or bowel obstruction.
[2021-01-14] MEDS ORDERED: LACTULOSE 20 GM/30 ML CUP PO ONE (14:15)
[2021-01-14] MEDS ORDERED: DOCUSATE 283 MG/5 ML ENEMA RECTAL STA (14:15)
[2021-01-14 18:18] VITALS: BP 144/90; PULSE 89; TEMP 97.8
== END 2021-01-14 18:05 | disposition home or self-care (01) ==
LOC: EC 11:39
DX: K59.00 Constipation, unspecified (principal); E11.36 Type 2 diabetes mellitus with diabetic cataract; E78.5 Hyperlipidemia, unspecified; I11.0 Hypertensive heart disease with heart failure; I50.9 Heart failure, unspecified; I25.10 Atherosclerotic heart disease of native coronary artery without angina pectoris; I25.2 Old myocardial infarction; I48.91 Unspecified atrial fibrillation; Z79.01 Long term (current) use of anticoagulants; Z79.82 Long term (current) use of aspirin; Z79.84 Long term (current) use of oral hypoglycemic drugs; Z79.899 Other long term (current) drug therapy; F41.9 Anxiety disorder, unspecified; M19.90 Unspecified osteoarthritis, unspecified site
CPT/HCPCS: 36415; 80053; 82150; 83690; 85025; 81003; 74177; 99284; 96374; 96361; Q9967

== ENCOUNTER → 2021-02-19 | Outpatient (CLI) | payer MEDICARE ==
[2021-02-19 11:11] LABS: Appearance,Urine Clear (Clear); Bilirubin,Urine Negative (Negative); Blood,Urine Moderate (Negative); Color,Urine Yellow; Glucose,Urine (UA) Negative (Negative); Hyaline Casts,Urine 3 /lpf (0-2); Ketones,Urine Negative (Negative); Leukocyte Esterase,Urine Negative (Negative); Mucus,Urine Rare /hpf; Nitrite,Urine Negative (Negative); Protein,Urine Trace (Negative); RBC,Urine 42 /hpf (0-5); Specific Gravity,Urine 1.024 (1.001-1.035); Urobilinogen,Urine <2.0 mg/dL (<2.0); WBC,Urine 2 /hpf (0-5)
[2021-02-19 17:29] LABS: HCT 45.3 % (39.6-50.0); HGB 14.8 g/dL (13.0-17.0); MCH 33.3 pg (27.0-32.0); MCHC 32.7 g/dL (32.0-37.0); Mean Platelet Volume 10.7 fL (9.5-12.2); Platelet Count 200 X 10*3/uL (140-440); RBC 4.44 X 10*6/uL (4.40-5.60); RDW 12.9 % (11.5-14.5); WBC 5.16 X 10*3/uL (4.50-10.00)
[2021-02-19 20:20] LABS: % Iron Saturation 31.19 (15.00-50.00); African American GFR (CKD) 33.9 (60.0-200.0); Albumin 4.2 g/dL (3.80-4.90); BUN/Creat Ratio 22.38 Ratio (12.00-20.00); Calcium 8.9 mg/dL (8.7-10.3); Globulin 2.1 g/dL (1.6-3.3); Magnesium 1.5 mg/dL (1.5-2.4); Non-African American GFR(CKD) 29.3 (60.0-200.0); Phosphorus 3.4 mg/dL (2.4-5.1); Potassium 5.5 mmol/L (3.5-5.5); Total Bilirubin 0.5 mg/dL (0.2-1.2); Total Protein 6.3 g/dL (6.2-8.2); Uric Acid 8.2 mg/dL (3.7-8.7)
[2021-02-19 20:28] LABS: Ferritin 281.6 ng/mL (22.0-322.0)
[2021-02-20 02:29] LABS: Urine Creatinine 158.2 mg/dL
== END | disposition home or self-care (01) ==
LOC: LABWHC1 08:49
PROVIDERS: ATTEND Internal Medicine
DX: N39.0 Urinary tract infection, site not specified (principal); N18.32 Chronic kidney disease, stage 3b; N25.81 Secondary hyperparathyroidism of renal origin; E55.9 Vitamin D deficiency, unspecified; D64.9 Anemia, unspecified; M10.9 Gout, unspecified
CPT/HCPCS: 36415; 80053; 81001; 82043; 82306; 82570; 82728; 83540; 83550; 83735; 83970; 84100; 84550; 85027

== ENCOUNTER → 2021-02-19 | Outpatient (CLI) | payer MEDICARE ==
--- NOTE | 2021-02-19 11:55 | US ---
EXAMINATION TYPE: US kidneys/renal and bladder DATE OF EXAM: 02/19/2021 COMPARISON: CT 01/14/2021 CLINICAL HISTORY: N18.3 chronic kidney stage 3. CKD EXAM MEASUREMENTS: Right Kidney: 10.8 x 4.9 x 4.2 cm Left Kidney: 11.8 x 6.4 x 5.3 cm Morbidly obese pt, difficult exam Right Kidney: Cortical thinning, Cyst upper pole= 4.7 x 3.6 x 3.9 cm/ hypoechoic lesion lower pole= 2 .0 x 1.4 x 1.7 cm Left Kidney: Cortical thinning, no evidence of hydro, 1.3 cm renal calculi mid/ possible small cyst m id= 1.6 cm Bladder: wnl, small in size, pt voided just prior to exam Bilateral Jets seen: No IMPRESSION: Bilateral cortical thinning correlate for chronic medical renal disease. There is a 1.3 cm nonobstruc ting left renal calculus. Hypoechoic nodules are seen within both kidneys likely related to simple cy sts. Some are indeterminate and too small to characterize accurately.
== END | disposition home or self-care (01) ==
LOC: RADUSWWP 10:10
PROVIDERS: ATTEND Internal Medicine
DX: N20.0 Calculus of kidney (principal); N28.89 Other specified disorders of kidney and ureter
CPT/HCPCS: 76770

== ENCOUNTER → 2021-08-09 | Outpatient (CLI) | payer MEDICARE ==
[2021-08-09 12:06] LABS: Appearance,Urine Clear (Clear); Bilirubin,Urine Negative (Negative); Blood,Urine Negative (Negative); Color,Urine Yellow; Glucose,Urine (UA) 3+ (Negative); Ketones,Urine Negative (Negative); Leukocyte Esterase,Urine Negative (Negative); Nitrite,Urine Negative (Negative); PH, Urine 5.5 (5.0-8.0); Protein,Urine Trace (Negative); Specific Gravity,Urine 1.024 (1.001-1.035); Urobilinogen,Urine <2.0 mg/dL (<2.0)
[2021-08-09 16:17] LABS: Basophils # (A) 0.03 X 10*3/uL (0.00-0.10); Basophils % (A) 0.6 %; Eosinophils # (A) 0.12 X 10*3/uL (0.04-0.35); Eosinophils % (A) 2.4 %; HCT 46.6 % (39.6-50.0); HGB 15.5 g/dL (13.0-17.0); Lymphocytes # (A) 1.25 X 10*3/uL (0.90-5.00); MCH 33.6 pg (27.0-32.0); MCHC 33.3 g/dL (32.0-37.0); MCV 101.1 fL (80.0-97.0); Mean Platelet Volume 11.3 fL (9.5-12.2); Monocytes # (A) 0.49 X 10*3/uL (0.20-1.00); Monocytes % (A) 9.8 %; Neutrophils # (A) 3.07 X 10*3/uL (1.80-7.70); Neutrophils % (A) 61.2 %; Platelet Count 171 X 10*3/uL (140-440); RBC 4.61 X 10*6/uL (4.40-5.60); RDW 12.7 % (11.5-14.5); WBC 5.01 X 10*3/uL (4.50-10.00)
[2021-08-09 19:28] LABS: % Iron Saturation 33.35 (15.00-50.00); African American GFR (CKD) 43.5 (60.0-200.0); Albumin 4.4 g/dL (3.8-4.9); Albumin/Globulin Ratio 1.83 (1.60-3.17); Anion Gap 12.9 mmol/L (4.00-12.00); BUN/Creat Ratio 20.53 Ratio (12.00-20.00); Blood Urea Nitrogen 34.9 mg/dL (9.0-27.0); Calcium 9.8 mg/dL (8.7-10.3); Carbon Dioxide 20.1 mmol/L (21.6-31.8); Globulin 2.4 g/dL (1.6-3.3); Magnesium 1.8 mg/dL (1.5-2.4); Non-African American GFR(CKD) 37.5 (60.0-200.0); Phosphorus 2.9 mg/dL (2.4-5.1); Potassium 5.2 mmol/L (3.5-5.5); Total Bilirubin 0.5 mg/dL (0.30-1.20); Total Protein 6.8 g/dL (6.2-8.2)
== END | disposition home or self-care (01) ==
LOC: LABWHC1 10:08
PROVIDERS: ATTEND Nurse Practitioner Family
DX: E11.22 Type 2 diabetes mellitus with diabetic chronic kidney disease (principal); N18.32 Chronic kidney disease, stage 3b; D64.9 Anemia, unspecified; N39.0 Urinary tract infection, site not specified; N25.81 Secondary hyperparathyroidism of renal origin; E55.9 Vitamin D deficiency, unspecified; M10.9 Gout, unspecified
CPT/HCPCS: 36415; 80053; 81003; 82043; 82306; 82570; 82728; 83036; 83540; 83550; 83735; 83970; 84100; 85025

== ENCOUNTER → 2022-01-15 | Outpatient (CLI) | payer MEDICARE ==
--- NOTE | 2022-01-15 11:21 | XR ---
EXAMINATION TYPE: XR KUB DATE OF EXAM: 01/15/2022 COMPARISON: CT dated 01/14/2021 INDICATION: History of right stones. Now left-sided flank pain. TECHNIQUE: Single AP view of the abdomen in the upright position. FINDINGS: 3 radiopaque shadows superimposed on the left kidney probably representing renal calculi, measuring u p to 4 mm at the upper pole, 6 mm at the midpole and 7 mm at the lower pole. No definite radiopaque r ight calculi identified. No obvious ureteric or urinary bladder radiopaque calculi. Sternotomy wire sutures. Dextroscoliosis o f the lumbar spine with degenerative changes of the lower thoracic and lumbar spine. IMPRESSION: Suspected left renal calculi as described above. Further CT assessment can be considered if clinicall y required.
== END | disposition home or self-care (01) ==
LOC: RADXRMAIN 10:16
PROVIDERS: ATTEND Urology
DX: N20.0 Calculus of kidney (principal)
CPT/HCPCS: 74018

== ENCOUNTER → 2022-08-07 | Outpatient (CLI) | payer MEDICARE ==
[2022-08-07 18:03] LABS: HCT 46.1 % (39.6-50.0); HGB 15.4 g/dL (13.0-17.0); MCH 32.9 pg (27.0-32.0); MCHC 33.4 g/dL (32.0-37.0); MCV 98.5 fL (80.0-97.0); Mean Platelet Volume 10.5 fL (9.5-12.2); NRBC Per 100 WBC 0 /100 WBCS (0.0-0.0); Platelet Count 211 X 10*3/uL (140-440); RBC 4.68 X 10*6/uL (4.40-5.60); RDW 12.5 % (11.5-14.5); WBC 6.07 X 10*3/uL (4.50-10.00)
[2022-08-07 19:36] LABS: % Iron Saturation 37.32 (15.00-50.00); ALT 17 U/L (10-49); AST 30 U/L (14-35); African American GFR (CKD) 43.2 (60.0-200.0); Albumin 4.3 g/dL (3.8-4.9); Albumin/Globulin Ratio 1.54 (1.60-3.17); Alkaline Phosphatase 53 U/L (41-126); BUN/Creat Ratio 16.47 Ratio (12.00-20.00); Calcium 9.5 mg/dL (8.7-10.3); Carbon Dioxide 21.3 mmol/L (20.0-27.5); Chloride 106 mmol/L (96-109); Globulin 2.8 g/dL (1.6-3.3); Glucose 130 mg/dL (70-110); Iron 128 ug/dL (65-175); Magnesium 1.6 mg/dL (1.5-2.4); Non-African American GFR(CKD) 37.3 (60.0-200.0); Phosphorus 2.8 mg/dL (2.4-5.1); Potassium 4.9 mmol/L (3.5-5.5); Sodium 140 mmol/L (135-145); Total Iron Binding Capacity 343 ug/dL (228-460); Total Protein 7.1 g/dL (6.2-8.2); Uric Acid 5.4 mg/dL (3.7-8.7)
[2022-08-07 19:45] LABS: Chol/HDL Ratio 2.31 Ratio
[2022-08-07 20:20] LABS: Appearance,Urine Clear (Clear); Bilirubin,Urine Negative (Negative); Blood,Urine Negative (Negative); Color,Urine Yellow (Yellow); Ketones,Urine Negative (Negative); Nitrite,Urine Negative (Negative); PH, Urine 5.5 (5.0-8.0); Specific Gravity,Urine 1.021 (1.001-1.030); Urobilinogen,Urine 0.2 (0.2,1.0)
== END | disposition home or self-care (01) ==
LOC: LABWHC1 12:35
PROVIDERS: ATTEND Internal Medicine Endocrinology, Diabetes & Metabolism
DX: N25.81 Secondary hyperparathyroidism of renal origin (principal); E11.65 Type 2 diabetes mellitus with hyperglycemia; E11.22 Type 2 diabetes mellitus with diabetic chronic kidney disease; N39.0 Urinary tract infection, site not specified; E55.9 Vitamin D deficiency, unspecified; M10.9 Gout, unspecified; N18.32 Chronic kidney disease, stage 3b; D63.1 Anemia in chronic kidney disease
CPT/HCPCS: 36415; 80053; 80061; 81003; 82043; 82306; 82570; 82728; 83036; 83540; 83550; 83735; 83970; 84100; 84443; 84550; 85027

== ENCOUNTER → 2022-11-21 | Outpatient (CLI) | payer MEDICARE ==
[2022-11-21 14:30] LABS: Basophils # (A) 0.05 X 10*3/uL (0.00-0.10); Eosinophils % (A) 3.8 %; HCT 50.9 % (39.6-50.0); HGB 16.7 g/dL (13.0-17.0); Immature Grans, Automated 0.8 %; Lymphocytes # (A) 1.02 X 10*3/uL (0.90-5.00); Lymphocytes % (A) 19.5 %; MCH 33.4 pg (27.0-32.0); MCHC 32.8 g/dL (32.0-37.0); MCV 101.8 fL (80.0-97.0); Mean Platelet Volume 10.5 fL (9.5-12.2); Monocytes # (A) 0.62 X 10*3/uL (0.20-1.00); Monocytes % (A) 11.9 %; NRBC Per 100 WBC 0 /100 WBCS (0.0-0.0); Neutrophils # (A) 3.29 X 10*3/uL (1.80-7.70); Platelet Count 184 X 10*3/uL (140-440); RDW 12.5 % (11.5-14.5); WBC 5.22 X 10*3/uL (4.50-10.00)
[2022-11-21 15:25] LABS: Chol/HDL Ratio 3.52 Ratio; LDL Cholesterol,Calculated 44.7 mg/dL (0.0-131.0)
[2022-11-21 15:51] LABS: % Iron Saturation 37.24 (15.00-50.00); ALT 22 U/L (10-49); AST 25 U/L (14-35); African American GFR (CKD) 34.4 (60.0-200.0); Albumin/Globulin Ratio 1.56 (1.60-3.17); Alkaline Phosphatase 61 U/L (41-126); BUN/Creat Ratio 20.29 Ratio (12.00-20.00); Blood Urea Nitrogen 41.6 mg/dL (9.0-27.0); Calcium 9.9 mg/dL (8.7-10.3); Carbon Dioxide 23.8 mmol/L (20.0-27.5); Chloride 103 mmol/L (96-109); Globulin 2.6 g/dL (1.6-3.3); Glucose 173 mg/dL (70-110); Iron 122 ug/dL (65-175); Magnesium 2.2 mg/dL (1.5-2.4); Non-African American GFR(CKD) 29.7 (60.0-200.0); Phosphorus 4.5 mg/dL (2.4-5.1); Potassium 5.7 mmol/L (3.5-5.5); Sodium 139 mmol/L (135-145); Total Iron Binding Capacity 328 ug/dL (228-460); Total Protein 6.6 g/dL (6.2-8.2); Uric Acid 5.9 mg/dL (3.7-8.7)
[2022-11-21 21:43] LABS: Appearance,Urine Clear (Clear); Bilirubin,Urine Negative (Negative); Blood,Urine Negative (Negative); Color,Urine Yellow (Yellow); Ketones,Urine Negative (Negative); Nitrite,Urine Negative (Negative); Specific Gravity,Urine 1.029 (1.001-1.030); Urobilinogen,Urine 0.2 (0.2,1.0)
[2022-11-21 23:52] LABS: Microalbumin Creatinine Ratio <30 mg/g Creat (0-30)
== END | disposition home or self-care (01) ==
LOC: LABWHC1 09:24
PROVIDERS: ATTEND Internal Medicine Endocrinology, Diabetes & Metabolism
DX: E11.22 Type 2 diabetes mellitus with diabetic chronic kidney disease (principal); E11.65 Type 2 diabetes mellitus with hyperglycemia; N18.32 Chronic kidney disease, stage 3b
CPT/HCPCS: 36415; 80053; 80061; 81003; 82043; 82306; 82570; 82728; 83036; 83540; 83550; 83735; 83970; 84100; 84443; 84550; 85025

== ENCOUNTER → 2023-06-18 | Outpatient (CLI) | payer MEDICARE ==
[2023-06-18 15:20] LABS: Basophils # (A) 0.04 X 10*3/uL (0.00-0.10); Basophils % (A) 0.7 %; Eosinophils # (A) 0.18 X 10*3/uL (0.04-0.35); HCT 47.1 % (39.6-50.0); HGB 16.1 d/dL (13.0-17.0); Lymphocytes # (A) 1.17 X 10*3/uL (0.90-5.00); Lymphocytes % (A) 19.4 %; MCH 33.3 pg (27.0-32.0); MCHC 34.2 d/dL (32.0-37.0); MCV 97.3 FL (80.0-97.0); Mean Platelet Volume 10.8 FL (9.5-12.2); Monocytes # (A) 0.67 X 10*3/uL (0.20-1.00); Monocytes % (A) 11.1 %; NRBC Per 100 WBC 0 X 10*3/uL (0.00-0.01); Neutrophils # (A) 3.91 X 10*3/uL (1.80-7.70); Platelet Count 176 X 10*3/uL (140-440); RBC 4.84 X 10*6/uL (4.40-5.60); RDW 12.5 % (11.5-14.5); WBC 6.02 X 10*3/uL (4.50-10.00)
[2023-06-18 15:40] LABS: ALT 20 U/L (10-49); AST 24 U/L (14-35); Albumin 4.2 d/dL (3.8-4.9); Albumin/Globulin Ratio 1.62 Ratio (1.60-3.17); Alkaline Phosphatase 83 U/L (41-126); BUN/Creat Ratio 20.39 Ratio (12.00-20.00); Blood Urea Nitrogen 36.7 mg/dL (9.0-27.0); Calcium 9.7 mg/dL (8.7-10.3); Chloride 102 mmol/L (96-109); Chol/HDL Ratio 3.43 Ratio; Globulin 2.6 d/dL (1.6-3.3); Glucose 332 mg/dL (70-110); LDL Cholesterol,Calculated 34.7 mg/dL (0.0-131.0); Potassium 5.1 mmol/L (3.5-5.5); Sodium 137 mmol/L (135-145); Total Bilirubin 0.7 mg/dL (0.3-1.2); Total Protein 6.8 d/dL (6.2-8.2)
== END | disposition home or self-care (01) ==
LOC: LABWHC1 10:44
PROVIDERS: ATTEND Internal Medicine
DX: Z12.5 Encounter for screening for malignant neoplasm of prostate (principal); E11.65 Type 2 diabetes mellitus with hyperglycemia; N40.0 Benign prostatic hyperplasia without lower urinary tract symptoms
CPT/HCPCS: 80061; 80053; 84443; 85025; 82043; 82570; 36415; G0103

== ENCOUNTER → 2024-11-22 | Outpatient (CLI) | payer MEDICARE ==
--- NOTE | 2024-11-23 07:30 | US ---
EXAMINATION TYPE: US kidneys/renal and bladder DATE OF EXAM: 11/22/2024 COMPARISON: 02/19/21 CLINICAL INDICATION: Male, 84 years old with history of N18.32 CHRONIC KIDNEY DISEASE, STAGE 3B; CKD TECHNIQUE: Grayscale imaging of the bilateral kidneys and urinary bladder: FINDINGS: EXAM MEASUREMENTS: Right Kidney: 14.3 x 7.1 x 7.2 cm Left Kidney: 12.9 x 6.9 x 7.3 cm limited due to body habitus Right Kidney: cystic area mid pole measuring 4.8 x 6.8 x 4.4cm. Another hypoechoic area seen inf pole measuring 2.4 x 2.2 x 1.8cm . This may not be a simple cyst and monitoring is recommended. Left Kidney: echogenic focus seen measuring 1.1 x 1.2 x 0.7cm likely nonobstructing renal stone Bladder: mostly contracted Bilateral Jets seen: no There is no evidence for hydronephrosis at this point in time. No nephrolithiasis is seen. No go s are identified. The urinary bladder is anechoic. IMPRESSION: 1. Complex cyst may be on the right kidney. Monitoring is recommended. A larger simple cyst is presen t in the mid pole. 2. Nonobstructing left renal stone [facility], Workstation: [id number], 11/23/2024 7:27 AM
== END | disposition home or self-care (01) ==
LOC: RADUSWWP 15:09
PROVIDERS: ATTEND Internal Medicine
DX: N18.32 Chronic kidney disease, stage 3b (principal); N20.0 Calculus of kidney; N28.1 Cyst of kidney, acquired
CPT/HCPCS: 76770

== ENCOUNTER 2025-01-19 08:33 | Emergency (ER) | payer MEDICARE ==
[2025-01-19] MEDS: BENZONATATE 100 MG CAP PO STA (09:11)
[2025-01-19 09:15] VITALS: RESP 20
--- NOTE | 2025-01-19 09:20 | ED ---
URI HPI - General Chief Complaint: Upper Respiratory Infection Stated Complaint: congestion,cough Time Seen by Provider: 01/19/25 08:58 Source: patient, RN notes reviewed Mode of arrival: ambulatory Limitations: no limitations - History of Present Illness Initial Comments: This is an 84-year-old male who presents to the emergency department for coughing and congestion. Patient states that this started 4 days ago. Denies any chest pain or shortness of breath. Cough is mildly productive. His largest concern is that the cough is keeping him up at night. He has tried taking [id number] Robitussin without much relief. He does report being around others with the same symptoms. He has not measured any fevers or chills. - Related Data Home Medications Medication Instructions Recorded Confirmed Fenofibrate 160 mg PO HS 07/02/19 01/14/21 Levothyroxine Sodium [Synthroid] 100 mcg PO DAILY 07/02/19 01/14/21 Pioglitazone HCl 30 mg PO DAILY 07/02/19 01/14/21 Zolpidem [Ambien] 10 mg PO HS PRN 07/02/19 01/14/21 glipiZIDE XL [Glucotrol XL] 10 mg PO BID 07/02/19 01/14/21 lisinopriL [Zestril] 5 mg PO DAILY 07/02/19 01/14/21 metFORMIN HCL [metFORMIN HCL ER 1,000 mg PO BID 07/02/19 01/14/21 Osmotic] Aspirin EC [Ecotrin Low Dose] 81 mg PO HS 11/23/19 01/14/21 Atorvastatin [Lipitor] 40 mg PO HS 11/23/19 01/14/21 Furosemide [Lasix] 20 mg PO DAILY 03/19/20 01/14/21 Meloxicam [Mobic] 15 mg PO DAILY 01/14/21 01/14/21 Previous Rx's Medication Instructions Recorded Apixaban [Eliquis] 5 mg PO BID #60 tab 07/06/19 Metoprolol Succinate (ER) [Toprol 100 mg PO DAILY #30 tab.er.24h 07/06/19 XL] Nitroglycerin Sl Tabs [Nitrostat] 0.4 mg SUBLINGUAL Q5M PRN tab 07/06/19 Azithromycin [Zithromax] 250 mg PO DIRECTED 5 Days #6 tab 04/02/25 Benzonatate [Tessalon Perle] 200 mg PO TID PRN #20 capsule 01/19/25 Codeine Phosphate/Guaifenesin 5 ml PO Q4-6H PRN #150 ml 01/19/25 [Codeine Phosphate/Guaifenesin 10-100 mg/5 ml] Allergies Allergy/AdvReac Type Severity Reaction Status Date / Time No Known Allergies Allergy Verified 01/19/25 08:57 Review of Systems ROS Statement: Those systems with pertinent positive or pertinent negative responses have been documented in the HPI. ROS Other: All systems not noted in ROS Statement are negative. Past Medical History Past Medical History: Atrial Fibrillation, Coronary Artery Disease (CAD), Heart Failure, Diabetes Mellitus, Hyperlipidemia, Hypertension, Myocardial Infarction ([place]), Osteoarthritis (OA), Thyroid Disorder Additional Past Medical History / Comment(s): SOB since [place], has cold and runny nose, pooir circulation in paulo legs, "enlarged lower bowel"-large bowel movements "all my life", leakage of stool, now loose stools, hx diverticulitis, "little bumps on face", recent echo as of 03/08/20 Last Myocardial Infarction Date:: 1997 History of Any Multi-Drug Resistant Organisms: None Reported Past Surgical History: Coronary Bypass/CABG, Heart Catheterization, Heart Catheterization With Stent, Orthopedic Surgery, Tonsillectomy Additional Past Surgical History / Comment(s): CABG-quad 1997, arthroscopy rt knee, paulo cataracts, one cardiac stent Past Anesthesia/Blood Transfusion Reactions: No Reported Reaction Date of Last Stent Placement:: 11/2013 Past Psychological History: Anxiety Past Alcohol Use History: None Reported Past Drug Use History: None Reported - Past Family History Mother Family Medical History: Cancer, CVA/TIA Additional Family Medical History / Comment(s): skin Father Family Medical History: Cancer, CVA/TIA Additional Family Medical History / Comment(s): throat cancer Brother(s) Family Medical History: Cancer Additional Family Medical History / Comment(s): skin General Exam Limitations: no limitations General appearance: alert, in no apparent distress Head exam: Present: atraumatic, normocephalic, normal inspection Respiratory exam: Present: normal lung sounds bilaterally. Absent: respiratory distress, wheezes, rales, rhonchi, stridor Cardiovascular Exam: Present: regular rate, normal rhythm Neurological exam: Present: alert, oriented X3, CN II-XII intact Psychiatric exam: Present: normal affect, normal mood Skin exam: Present: warm, dry, intact, normal color. Absent: rash Course Vital Signs 01/19/25 01/19/25 01/19/25 08:55 09:14 10:11 Temperature 99.4 F 98.9 F Pulse Rate 92 94 Respiratory 18 20 20 Rate Blood Pressure 130/64 128/86 O2 Sat by Pulse 96 95 Oximetry Medical Decision Making - Medical Decision Making This is an 84 year old male who presents to the emergency department for coughing and congestion. Was pt. sent in by a medical professional or institution? @ -No Did you speak to anyone other than the patient for history? @ -No Did you review nursing and triage notes? @ -Yes, and I agree, it is accurate with regards to the patient's symptoms. Were old charts reviewed? @ -No Differential Diagnosis? @ -Differential Cough: Influenza, Covid, RSV, croup, allergic rhinitis, GERD, pneumonia, bronchitis, COPD, viral pharyngitis, streptococcal pharyngitis, this is not meant to be an all-inclusive list. EKG interpreted by me (3pts min.)? @ -Not obtained X-rays interpreted by me (1pt min.)? @ -Chest x-ray obtained. My interpretation identifies diffuse interstitial opacities. CT interpreted by me (1pt min.)? @ -Not obtained U/S interpreted by me (1pt. min.)? @ -Not obtained What testing was considered but not performed? (CT, X-rays, U/S, labs)? Why? @ -None What meds were considered but not given? Why? @ -None Did you discuss the management of the patient with other professionals? @ -No Did you reconcile home meds? @ -No Was smoking cessation discussed for >3mins.? @ -No Was critical care preformed (if so, how long)? @ -No Were there social determinants of health that impacted care today? How? (Homelessness, low income, unemployed, alcoholism, drug addiction, transportation, low edu. Level, literacy, decrease access to med. care, long term, rehab)? @ -No Was there de-escalation of care discussed even if they declined? (Discuss DNR or withdrawal of care, Hospice)? @ -No What co-morbidities impacted this encounter? (DM, HTN, Smoking, COPD, CAD, Cancer, CVA, Hep., AIDS, mental health diagnosis, sleep apnea, morbid obesity)? @ -CAD, DM, HLD, HTN Was patient admitted / discharged? @ -Discharged. COVID, influenza, and RSV testing negative. Chest x-ray consistent with CHF versus atypical infection. He does have a history of CHF, but denies any shortness of breath or swelling. Symptoms most likely related to acute infection given the sick contacts and associated coughing and congestion. Prescription for azithromycin provided for suspected atypical pneumonia. Cough medication prescribed as well. Advised follow-up with his PCP in the next couple of days for reevaluation of symptoms. Patient discharged home in stable condition. Case discussed with ED attending Dr. Draper. Return precautions reviewed in depth, the patient is instructed to return to the emergency department with any new, worsening, or concerning symptoms. Patient verbalized understanding. Undiagnosed new problem with uncertain prognosis? @ -None Drug Therapy requiring intensive monitoring for toxicity (Heparin, Nitro, Insulin, Cardizem)? @ -None Were any procedures done? @ -None Diagnosis/symptom? @ -Atypical pneumonia Acute, or Chronic, or Acute on Chronic? @ -Acute Uncomplicated (without systemic symptoms) or Complicated (systemic symptoms)? @ -Uncomplicated Side effects of treatment? @ -None Exacerbation, Progression, or Severe Exacerbation] @ -Not applicable Poses a threat to life or bodily function? @ -Unlikely - Lab Data Lab Results 01/19/25 Range/Units 08:59 Influenza Type A (PCR) Not Detected (Not Detectd) Influenza Type B (PCR) Not Detected (Not Detectd) RSV (PCR) Not Detected (Not Detectd) SARS-CoV-2 (PCR) Not Detected (Not Detectd) - Radiology Data Radiology results: report reviewed, image reviewed Disposition Clinical Impression: Atypical pneumonia Disposition: HOME SELF-CARE Instructions (If sedation given, give patient instructions): Upper Respiratory Infection (ED), Pneumonia (ED) Additional Instructions: Return to the emergency department with any new, worsening, or concerning symptoms. Take the azithromycin as prescribed for 5 days. Take the Tessalon Perles up to every 8 hours as needed for coughing. You can take the guanfacine with codeine cough syrup every 4-6 hours. Follow up with your primary care provider in 1-2 days. Prescriptions: Codeine Phosphate/Guaifenesin [Codeine Phosphate/Guaifenesin 10-100 mg/5 ml] 5 ml PO Q4-6H PRN #150 ml PRN Reason: Cough Benzonatate [Tessalon Perle] 200 mg PO TID PRN #20 capsule PRN Reason: Cough Azithromycin [Zithromax] 250 mg PO DIRECTED 5 Days #6 tab Is patient prescribed a controlled substance at d/c from ED?: Yes When asked, does pt state using other controlled substances?: No If prescribed controlled substance>3 days was MAPS reviewed?: Prescribed <3 Days Referrals: Billy Adams DO [Primary Care Provider] - 1-2 days Time of Disposition: 09:57
--- NOTE | 2025-01-19 09:26 | XR ---
EXAMINATION TYPE: XR chest 2V DATE OF EXAM: 01/19/2025 9:20 AM COMPARISON: 07/02/2019 CLINICAL INDICATION: Male, 84 years old with history of Cough, , TECHNIQUE: PA and lateral views FINDINGS: Median sternotomy wires. Heart mild to moderately enlarged. Moderate diffuse interstitial opacity. No sizable pleural effusion or marilu consolidation seen. IMPRESSION: Cardiomegaly and diffuse interstitial changes. Correlate for CHF with mild interstitial pulmonary nicolas ma. Atypical infections would be an alternative consideration. [facility], , 01/19/2025 9:24 AM
[2025-01-19 09:46] LABS: Influenza A Not Detected (Not Detectd); Influenza B Not Detected (Not Detectd); RSV Not Detected (Not Detectd)
[2025-01-19 10:12] VITALS: BP 128/86; PULSE 94; TEMP 98.9
== END 2025-01-19 10:11 | disposition home or self-care (01) ==
LOC: EC 08:33
DX: J18.9 Pneumonia, unspecified organism (principal); I11.0 Hypertensive heart disease with heart failure; I50.9 Heart failure, unspecified; I25.10 Atherosclerotic heart disease of native coronary artery without angina pectoris; E11.9 Type 2 diabetes mellitus without complications; E78.5 Hyperlipidemia, unspecified
CPT/HCPCS: 71046; 87636; 99283

== ENCOUNTER → 2025-02-12 | Outpatient (CLI) | payer MEDICARE | END | disposition home or self-care (01) | LOC: RADMRIMAIN 14:09 | PROVIDERS: ATTEND Urology | DX: Z53.9 Procedure and treatment not carried out, unspecified reason (principal) | CPT/HCPCS: 74183 ==

== ENCOUNTER → 2025-02-24 | Outpatient (CLI) | payer MEDICARE ==
--- NOTE | 2025-02-24 14:59 | CT ---
EXAMINATION TYPE: CT abdomen pelvis wo con CT DLP: 1157 mGycm, Automated exposure control for dose reduction was used. DATE OF EXAM: 02/24/2025 11:05 AM COMPARISON: CT abdomen pelvis 01/14/2021, 03/19/2020, CTA chest 07/02/2019, renal ultrasound 11/22/2024, CLINICAL INDICATION:Male, 84 years old with history of N28.1 CYST OF KIDNEY, ACQUIRED; Renal cyst. TECHNIQUE: Standard CT of the abdomen and pelvis without IV or oral contrast. Lack of IV or oral co ntrast limits evaluation of solid and hollow organ viscera. Coronal and sagittal reformats were perfo rmed. FINDINGS: LOWER CHEST: Bibasilar subpleural linear scarring and/or atelectasis. No honeycombing. Cardiomegaly. Coronary artery calcifications and/or stents. Partial visualization of sternotomy wires. Post-CABG ch anges suggested. Dilated main pulmonary artery measures 3.4 cm suggesting pulmonary arterial hyperten tej. Ascending thoracic aortic aneurysm measuring up to 4.6 cm. Ectasia of the aortic root measuring up to 3.9 cm. Minimal bilateral gynecomastia. Left lower lobe calcified granuloma. ABDOMEN LIVER: Unremarkable noncontrast appearance GALLBLADDER AND BILE DUCTS: Unremarkable noncontrast appearance PANCREAS: Unremarkable noncontrast appearance SPLEEN: Unremarkable noncontrast appearance ADRENAL GLANDS: Unremarkable noncontrast appearance. KIDNEYS AND URETERS: No evidence of hydronephrosis. No right renal calculus. Nonobstructing 2 left re nal calculi with largest measuring up to 9 mm. Cortical thinning of both kidneys suggesting chronic m edical renal disease. And right renal midpole 6.2 cm simple appearing cyst. Right renal lower pole 2. 0 cm cyst corresponding to ultrasound. Demonstrates simple attenuation. Evaluation is limited due to lack of intravenous contrast. PELVIS BLADDER: Unremarkable REPRODUCTIVE: Coarse calcifications of the prostate gland are identified. ABDOMEN & PELVIS STOMACH AND BOWEL: Stomach and duodenum are unremarkable. The appendix is surgically absent. Distal c olonic diverticulosis without evidence for acute diverticulitis. No focal bowel wall thickening or dominugez rrounding inflammatory changes. No evidence of bowel obstruction. PERITONEUM: No evidence of pneumoperitoneum or free fluid. VASCULATURE: Mild atherosclerotic calcifications are present throughout the abdominal aorta and its b ranches. No evidence of aortic aneurysm. Pelvic phleboliths. MUSCULOSKELETAL: Degenerative changes of the pubic symphysis and right SI joint. Development of mild superior endplate compression deformity of the L1 vertebral body with approximately 5% height loss. N o retropulsion. Moderate multilevel degenerative disc disease. Mild dextroscoliotic of the lumbar spi ne. LYMPH NODES: No gross evidence for lymphadenopathy. SOFT TISSUE/ABDOMINAL WALL: Small umbilical hernia containing a portion of nonobstructing small bowel . Additional adjacent fat filled right periumbilical hernia. Fat filled right inguinal hernia. IMPRESSION: 1. No acute intra-abdominal/pelvic process. 2. Age indeterminate mild superior endplate compression deformity of the L1 vertebral body with appro ximately 5% height loss and no retropulsion. Correlate with point tenderness. 3. Simple appearing right renal cysts with the inferior pole right renal cyst demonstrating some comp lexity on recent ultrasound. Evaluation is limited due to lack of intravenous contrast. 4. Nonobstructing left renal calculi. 5. Small umbilical hernia containing a portion of nonobstructing small bowel. Right periumbilical fat -containing hernia and additional fat filled right inguinal hernia. 6. Colonic diverticulosis without evidence for acute diverticulitis. 7. Ascending thoracic aortic aneurysm measuring up to 4.6 cm. [facility], , 02/24/2025 2:57 PM
== END | disposition home or self-care (01) ==
LOC: RADCTMAIN 10:34
PROVIDERS: ATTEND Urology
DX: N20.0 Calculus of kidney (principal); N28.1 Cyst of kidney, acquired; M48.56XA Collapsed vertebra, not elsewhere classified, lumbar region, initial encounter for fracture; K42.9 Umbilical hernia without obstruction or gangrene; K57.30 Diverticulosis of large intestine without perforation or abscess without bleeding; I71.21 Aneurysm of the ascending aorta, without rupture
CPT/HCPCS: 74176